=== PATIENT | female | born 1985 | race African-American/Black ===

== ENCOUNTER 2017-07-23 21:23 | Observation (INO) | payer BC, OTHER ==
[2017-07-23 21:32] VITALS: BMI 26.5
--- NOTE | 2017-07-23 21:34 | PDOC ---
History of Present Illness - General History Source: Patient Exam Limitations: No Limitations - History of Present Illness Initial Comments: PCP: Cole Shook 31 year old female with no pmhx presented to the ED today with one day h/o of mid epigastric pain associated with Nausea and vomiting . The symptoms started today morning after she had a breakfast 2 eggs and orange juices , she develop 9/10 mid epigastric pain , continuous non radiating , she vomited 8 times since then whatever she ate. bilious and non bloody. she denies nay fever, chills . recent cold or sick contact , denies recent travel, denies headache ,blurry vision , sore throat, chest pain , sob, cough, denies any urinary symptoms, dysuria , hematuria. she has been having frequent gases and abdominal floating that she was follow up with GI doctor fr that and she was scheduled for endoscopy. PMHX: None PSH : none Allergies: NKDA Social: social drinking, denies any tobacco or drug abuse FH: BP , DM. Physical exam : Vital Signs Temp Pulse Resp BP Pulse Ox 98.8 F 74 18 121/61 99 07/23/17 21:30 07/23/17 21:30 07/23/17 21:30 07/23/17 21:30 07/23/17 21:30 General: well nourished in NAD Head: NC/AT , Neck: supple no lymphademopathy ENT: MMM, JOSE FRANCISCO, EOMI, No exudate Lungs: CTA B/L Haert: RRR, no MRG Abdomen : soft, mid epigastric tenderness,Webster;s positive , hypoactive BS Neuro: no focal deficit, normal speeach and walk Skin: warm and dry Legs: No edema , + 2 DP DD: Acute cholecystitis biliary cholic choledocholithisis Gastritis gastroenteritis Work up CBC, CMP US abdomen Protonix 40 mg iv push once Zofran for nausea IV fluids NS 125 CC/hr BHCG UA 07/23/17 21:59 <Omer Coats - Last Filed: 07/23/17 22:33> <Zeinab Henriquez - Last Filed: 07/24/17 00:47> - General Chief Complaint: Nausea/Vomiting Stated Complaint: ABDOMINAL AND BACK PAIN, VOMITING Time Seen by Provider: 07/23/17 21:33 Past History - Past Medical History COPD: No - Suicide/Smoking/Psychosocial Hx Smoking Status: No Smoking History: Never smoked Number of Cigarettes Smoked Daily: 0 <PaulyDelanoi - Last Filed: 07/23/17 22:33> <Zeinab Henriquez - Last Filed: 07/24/17 00:47> - Past Medical History Allergies/Adverse Reactions: Allergies Allergy/AdvReac Type Severity Reaction Status Date / Time No Known Allergies Allergy Verified 07/23/17 21:29 Home Medications: Ambulatory Orders Naproxen [Naprosyn -] 500 mg PO BID PRN #14 tablet 02/20/13 Norgestrel-Ethinyl Estradiol [Lo-Ovral-28] 1 each PO DAILY 02/20/13 *Physical Exam - Vital Signs Last Vital Signs Temp Pulse Resp BP Pulse Ox 98.8 F 74 18 121/61 99 07/23/17 21:30 07/23/17 21:30 07/23/17 21:30 07/23/17 21:30 07/23/17 21:30 <PaulyOmer - Last Filed: 07/23/17 22:33> - Vital Signs Last Vital Signs Temp Pulse Resp BP Pulse Ox 98.8 F 74 18 121/61 99 07/23/17 21:30 07/23/17 21:30 07/23/17 21:30 07/23/17 21:30 07/23/17 21:30 <Zeinab Henriquez - Last Filed: 07/24/17 00:47> ED Treatment Course - LABORATORY CBC & Chemistry Diagram: 07/23/17 21:53 07/23/17 21:53 <PaulyOmer - Last Filed: 07/23/17 22:33> - LABORATORY CBC & Chemistry Diagram: 07/23/17 21:53 07/23/17 21:53 - ADDITIONAL ORDERS Additional order review: Laboratory Results 07/23/17 07/23/17 07/23/17 22:00 21:53 21:53 Sodium 132 L Potassium 4.4 Chloride 99 Carbon Dioxide 28 Anion Gap 5 L BUN 7 Creatinine 0.6 Creat Clearance w eGFR > 60 Random Glucose 97 Calcium 9.5 Total Bilirubin 0.2 AST 13 L ALT 27 Alkaline Phosphatase 44 L Total Protein 7.8 Albumin 4.3 Lipase 108 Serum , Qual Negative Urine Color Yellow Urine Appearance Turbid Urine pH 9.0 H Ur Specific [place] 1.016 Urine Protein Negative Urine Glucose (UA) Negative Urine Ketones Trace H Urine Blood Negative Urine Nitrite Negative Urine Bilirubin Negative Urine Urobilinogen Negative Ur Leukocyte Esterase Negative 07/23/17 21:53 RBC 4.59 MCV 84.9 MCHC 33.6 RDW 12.6 MPV 7.9 Neutrophils % 87.9 H Lymphocytes % 9.0 Monocytes % 2.6 L Eosinophils % 0.1 Basophils % 0.4 - Medications Given in the ED: ED Medications Discontinued Medications Generic Name Dose Route Start Last Admin Trade Name Abrahamq PRN Reason Stop Dose Admin Hydromorphone HCl 0.5 mg 07/23/17 21:55 07/23/17 22:29 Dilaudid Injection - IVPB 07/23/17 21:56 Not Given ONCE ONE Ondansetron HCl 4 mg 07/23/17 21:52 07/23/17 22:28 Zofran Injection IVPUSH 07/23/17 21:53 4 mg ONCE ONE Administration Pantoprazole Sodium 40 mg 07/23/17 21:59 07/23/17 22:29 Protonix Iv IVPUSH 07/23/17 22:00 40 mg ONCE ONE Administration <Zeinab Henriquez - Last Filed: 07/24/17 00:47> Medical Decision Making - Medical Decision Making 07/23/17 22:55 89-year-old female presents with epigastric pain that radiates to her back, nausea and vomiting. She has been having bilious emesis. She has a past medical history of epigastric pain and vomiting and has seen a gastroentologist and an endoscopy is planned However, today she said the pain was much worse and she vomited 8 times She denies any diarrhea <Zeinab Henriquez - Last Filed: 07/24/17 00:47> *DC/Admit/Observation/Transfer <Omer Coats - Last Filed: 07/23/17 22:33> <Zeinab Henriquez - Last Filed: 07/24/17 00:47> Diagnosis at time of Disposition: Cholelithiasis, Persistent vomiting - Referrals Referrals: Bouchra Galvan MD [Primary Care Provider] - - Patient Instructions - Post Discharge Activity
[2017-07-23] MEDS ORDERED: ONDANSETRON 4 MG/2 ML VIAL IVPUSH ONE (21:52)
[2017-07-23] MEDS ORDERED: HYDROmorphone HCL CARPU-JECT 1 MG/1 ML DISP.SYRIN IVPB ONE (21:55)
[2017-07-23] MEDS ORDERED: ONDANSETRON 4 MG/2 ML VIAL ONE (21:57)
[2017-07-23] MEDS ORDERED: PANTOPRAZOLE SODIUM 40 MG VIAL IVPUSH ONE (21:59)
[2017-07-23] MEDS ORDERED: SODIUM CHLORIDE 1,000 ML IV SCH (22:00)
[2017-07-23 22:03] LABS: URINE APPEARANCE TURBID; URINE BILIRUBIN NEGATIVE (<2.0 mg/dL); URINE BLOOD NEGATIVE (NEGATIVE); URINE COLOR YELLOW; URINE GLUCOSE (UA) NEGATIVE (NEGATIVE); URINE KETONE TRACE (NEGATIVE); URINE LEUK ESTERASE NEGATIVE (NEGATIVE); URINE NITRITE NEGATIVE (NEGATIVE); URINE PROTEIN NEGATIVE (NEGATIVE); URINE UROBILINOGEN NEGATIVE mg/dL (0.2-1.0)
[2017-07-23] MEDS ORDERED: PANTOPRAZOLE SODIUM 40 MG VIAL ONE (22:03)
[2017-07-23 22:05] LABS: BASO % 0.4 % (0-2.0); EOS % 0.1 % (0-4.5); HEMOGLOBIN 13.1 GM/dL (10.7-15.3); MCH 28.6 pg (25.7-33.7); MCHC 33.6 g/dl (32.0-36.0); MEAN CELL VOLUME 84.9 fl (80-96); MEAN PLT VOLUME 7.9 fl (7.5-11.1); MONO % 2.6 % (3.8-10.2); NEUT % 87.9 % (42.8-82.8); PLATELET COUNT 258 K/MM3 (134-434); RBC 4.59 M/mm3 (3.60-5.2); RDW 12.6 % (11.6-15.6); WHITE BLOOD COUNT 14.2 K/mm3 (4.0-10.0)
[2017-07-23 22:42] LABS: ALBUMIN 4.3 g/dl (3.4-5.0); ANION GAP 5 (8-16); BILIRUBIN,TOTAL 0.2 mg/dL (0.2-1.0); BLOOD UREA NITROGEN 7 mg/dL (7-18); CALCIUM 9.5 mg/dL (8.5-10.1); CHLORIDE 99 mmol/L (98-107); CO2 28 mmol/L (21-32); CREATININE 0.6 mg/dL (0.55-1.02); GLUCOSE,RANDOM 97 mg/dL (74-106); LIPASE 108 U/L (73-393); POTASSIUM 4.4 mmol/L (3.5-5.1); SGOT/AST 13 U/L (15-37); SGPT/ALT 27 U/L (12-78); SODIUM 132 mmol/L (136-145); TOT PROT 7.8 g/dl (6.4-8.2)
[2017-07-23 22:43] LABS: ALK PHOS 44 U/L (45-117)
--- NOTE | 2017-07-23 22:59 | PDOC ---
Attending Attestation - Resident Resident Name: Omer Coats - ED Attending Attestation I have performed the following: I have examined & evaluated the patient, The case was reviewed & discussed with the resident, I agree w/resident's findings & plan, Exceptions are as noted - HPI HPI: 07/23/17 22:59 31 yo female w epigastric and vomiting today, pain radiating to her back - Physicial Exam PE: 07/23/17 22:59 31 yo female with epigastric pain and tenderness head ncat neck supple lungs cta b/l cvs [id number] abd +epigastric pain ext no e/c/c neuro no focal neuro deficits - Medical Decision Making 07/23/17 23:02 diff diag : cholecystitis,gastritis 07/23/17 23:53 US +cholecystitis w persisitent bilious emesis and pain plan med/surg ADMIT
[2017-07-23] MEDS ORDERED: morphine CARPU-JECT 2 MG/1 ML DISP.SYRIN IVPUSH ONE (23:03)
[2017-07-23] MEDS ORDERED: morphine SULFATE 4 MG/ML VIAL ONE (23:10)
[2017-07-23] MEDS ORDERED: PIPERACILLIN/TAZOB 3.375 GM 50 ML IVPB ONE (23:41)
[2017-07-23] MEDS ORDERED: PIPERACILLIN/TAZOB 3.375 GM 3.375 GM/50 ML BAG IVPB ONE (23:47)
--- NOTE | 2017-07-23 23:49 | HP ---
CHIEF COMPLAINT: Abdominal Pain, Vomiting PCP: Dr. Bouchra Galvan HISTORY OF PRESENT ILLNESS: This is a 31 y/o woman with no past medical history. Who presents to the ED with epigastric cramping with bilious non-bloody vomit starting today. Patient reports after eating eggs and OJ earlier in the day, she began having cramping, bloating, epigastric pain with bilious vomiting x 8 episode. Patient reports being under the care of a GI for flatulence and abdominal bloating scheduled for an Endoscopy. Patient denies fever, cough, FLORES, dizziness, CP, diarrhea, constipation, dysuria. Last BM today- brown soft ER course was notable for: (1) Abdominal US- Cholelithiasis, GB distended, fatty liver, normal CBD 2.3 (2) WBC 14.2 (3) Recent Travel: None PAST MEDICAL HISTORY: None PAST SURGICAL HISTORY: None Social History: Smoking: Never Alcohol: Social Drugs: Denies Family History: Father: HLD Mother: well, alive HTN: Grandparents DM: Grandparents Allergies No Known Allergies Allergy (Verified 07/23/17 21:29) HOME MEDICATIONS: Home Medications Medication Instructions Recorded Naproxen [Naprosyn -] 500 mg PO BID PRN #14 tablet 02/20/13 Norgestrel-Ethinyl Estradiol 1 each PO DAILY 02/20/13 [Lo-Ovral-28] REVIEW OF SYSTEMS CONSTITUTIONAL: chills Absent: fever, diaphoresis, generalized weakness, malaise, loss of appetite, weight change HEENT: Absent: rhinorrhea, nasal congestion, throat pain, throat swelling, difficulty swallowing, mouth swelling, ear pain, eye pain, visual changes CARDIOVASCULAR: Absent: chest pain, syncope, palpitations, irregular heart rate, lightheadedness , peripheral edema RESPIRATORY: Absent: cough, shortness of breath, dyspnea with exertion, orthopnea, wheezing, stridor, hemoptysis GASTROINTESTINAL: abdominal pain, abdominal distension, nausea, vomiting Absent: diarrhea, constipation, melena, hematochezia GENITOURINARY: Absent: dysuria, frequency, urgency, hesitancy, hematuria, flank pain, genital pain MUSCULOSKELETAL: Absent: myalgia, arthralgia, joint swelling, back pain, neck pain SKIN: Absent: rash, itching, pallor HEMATOLOGIC/IMMUNOLOGIC: Absent: easy bleeding, easy bruising, lymphadenopathy, frequent infections ENDOCRINE: Absent: unexplained weight gain, unexplained weight loss, heat intolerance, cold intolerance NEUROLOGIC: Absent: headache, focal weakness or paresthesias, dizziness, unsteady gait, seizure, mental status changes, bladder or bowel incontinence PSYCHIATRIC: Absent: anxiety, depression, suicidal or homicidal ideation, hallucinations. PHYSICAL EXAMINATION Vital Signs - 24 hr 07/23/17 21:30 Temperature 98.8 F Pulse Rate 74 Respiratory 18 Rate Blood Pressure 121/61 O2 Sat by Pulse 99 Oximetry (%) GENERAL: Awake, alert, and fully oriented, in no acute distress. HEAD: Normal with no signs of trauma. EYES: Pupils equal, round and reactive to light, extraocular movements intact, sclera anicteric, conjunctiva clear. No lid lag. EARS, NOSE, THROAT: Ears normal, nares patent, oropharynx clear without exudates. Moist mucous membranes. NECK: Normal range of motion, supple without lymphadenopathy, JVD, or masses. LUNGS: Breath sounds equal, clear to auscultation bilaterally. No wheezes, and no crackles. No accessory muscle use. HEART: Regular rate and rhythm, normal S1 and S2 without murmur, rub or gallop. ABDOMEN:+Epigastric tenderness, hypoactive bowel sounds. Soft, not distended, no guarding, no rebound, no masses. No hepatomegaly or splenomegaly. neg Webster's sign MUSCULOSKELETAL: Normal range of motion at all joints. No bony deformities or tenderness. No CVA tenderness. UPPER EXTREMITIES: 2+ pulses, warm, well-perfused. No cyanosis. No clubbing. No peripheral edema. LOWER EXTREMITIES: 2+ pulses, warm, well-perfused. No calf tenderness. No peripheral edema. NEUROLOGICAL: Cranial nerves II-XII intact. Normal speech. Normal gait. PSYCHIATRIC: Cooperative. Good eye contact. Appropriate mood and affect. SKIN: Warm, dry, normal turgor, no rashes or lesions noted, normal capillary refill. Laboratory Results - last 24 hr 07/23/17 07/23/17 07/23/17 21:53 21:53 21:53 WBC 14.2 H RBC 4.59 Hgb 13.1 Hct 39.0 MCV 84.9 MCH 28.6 MCHC 33.6 RDW 12.6 Plt Count 258 MPV 7.9 Neutrophils % 87.9 H Lymphocytes % 9.0 Monocytes % 2.6 L Eosinophils % 0.1 Basophils % 0.4 Sodium 132 L Potassium 4.4 Chloride 99 Carbon Dioxide 28 Anion Gap 5 L BUN 7 Creatinine 0.6 Creat Clearance w eGFR > 60 Random Glucose 97 Calcium 9.5 Total Bilirubin 0.2 AST 13 L ALT 27 Alkaline Phosphatase 44 L Total Protein 7.8 Albumin 4.3 Lipase 108 Serum , Qual Urine Color Yellow Urine Appearance Turbid Urine pH 9.0 H Ur Specific [place] 1.016 Urine Protein Negative Urine Glucose (UA) Negative Urine Ketones Trace H Urine Blood Negative Urine Nitrite Negative Urine Bilirubin Negative Urine Urobilinogen Negative Ur Leukocyte Esterase Negative 07/23/17 22:00 WBC RBC Hgb Hct MCV MCH MCHC RDW Plt Count MPV Neutrophils % Lymphocytes % Monocytes % Eosinophils % Basophils % Sodium Potassium Chloride Carbon Dioxide Anion Gap BUN Creatinine Creat Clearance w eGFR Random Glucose Calcium Total Bilirubin AST ALT Alkaline Phosphatase Total Protein Albumin Lipase Serum , Qual Negative Urine Color Urine Appearance Urine pH Ur Specific [place] Urine Protein Urine Glucose (UA) Urine Ketones Urine Blood Urine Nitrite Urine Bilirubin Urine Urobilinogen Ur Leukocyte Esterase ASSESSMENT/PLAN: This is a 31 y/o woman with no PMHx. Placed on Observation for Abdominal Pain secondary to Cholelithiasis, Persistent Vomiting Plan: 1. GI: Abdominal Pain Cholelithiasis Persistent Vomiting - r/o Cholecystitis vs Gastritis - +Leukocytosis - Abd US- Cholelithasis, GB distention, no GBW thickening, neg Webster's sign, Fatty Liver, normal CBD 5.3mm, Right renal cyst - Appreciate GI consult - Appreciate Surgical consult - Continue IVF - NPO - Zofran prn - Repeat CBC, BMP in am - Monitor vitals - Consider ERCP 2. Leukocytosis - Likely secondary to infection vs inflammatory process vs malignancy - Blood Cultures-pending - +Neutrophila - Empirically treated with Zosyn for Cholecytstitis, will continue - Appreciate ID consult - Repeat CBCD in am - Monitor vitals 3. FEN - D51/2NS@100ml/hr - Replete lytes prn - NPO 4. DVT ppx - OOB - SCDs Code Status: Full Code Dispo: Observation Problem List - Problem (1) Cholelithiasis Code(s): K80.20 - CALCULUS OF GALLBLADDER W/O CHOLECYSTITIS W/O OBSTRUCTION Qualifiers: Cholelithiasis location: gallbladder Cholecystitis presence: with cholecystitis Cholecystitis acuity: acute Biliary obstruction: without biliary obstruction Qualified Code(s): K80.00 - Calculus of gallbladder with acute cholecystitis without obstruction (2) Persistent vomiting Code(s): R11.10 - VOMITING, UNSPECIFIED (3) Leukocytosis Code(s): D72.829 - ELEVATED WHITE BLOOD CELL COUNT, UNSPECIFIED (4) DVT prophylaxis Code(s): BXB9225 - Visit type - Emergency Visit Emergency Visit: Yes ED Registration Date: 07/23/17 Care time: The patient presented to the Emergency Department on the above date and was hospitalized for further evaluation of their emergent condition. - New Patient This patient is new to me today: Yes Date on this admission: 07/23/17 - Critical Care Critical Care patient: No Hospitalist Screening - Colonoscopy Questionnaire Colonoscopy Questionnaire: Colonoscopy Questionnaire - Patient: 50 - 75 years old and never had a screening colonoscopy: No History of colon or rectal polyps, or CA: No History of IBD, Crohn's disease or UC: No History of abdominal radiation therapy as a child: No - Relative: 1 with colon or rectal CA, or polyps at age 60 or younger: No Colon or rectal CA diagnosed at age 45 or younger: No Multiple relatives with colon or rectal CA: No - Outcome: Screening Result: Negative Screen
--- NOTE | 2017-07-23 23:55 | PDOC ---
*Physical Exam - Vital Signs Last Vital Signs Temp Pulse Resp BP Pulse Ox 98.8 F 74 18 121/61 99 07/23/17 21:30 07/23/17 21:30 07/23/17 21:30 07/23/17 21:30 07/23/17 21:30 ED Treatment Course - LABORATORY CBC & Chemistry Diagram: 07/23/17 21:53 07/23/17 21:53 - ADDITIONAL ORDERS Additional order review: Laboratory Results 07/23/17 07/23/17 07/23/17 22:00 21:53 21:53 Sodium 132 L Potassium 4.4 Chloride 99 Carbon Dioxide 28 Anion Gap 5 L BUN 7 Creatinine 0.6 Creat Clearance w eGFR > 60 Random Glucose 97 Calcium 9.5 Total Bilirubin 0.2 AST 13 L ALT 27 Alkaline Phosphatase 44 L Total Protein 7.8 Albumin 4.3 Lipase 108 Serum , Qual Negative Urine Color Yellow Urine Appearance Turbid Urine pH 9.0 H Ur Specific [place] 1.016 Urine Protein Negative Urine Glucose (UA) Negative Urine Ketones Trace H Urine Blood Negative Urine Nitrite Negative Urine Bilirubin Negative Urine Urobilinogen Negative Ur Leukocyte Esterase Negative 07/23/17 21:53 RBC 4.59 MCV 84.9 MCHC 33.6 RDW 12.6 MPV 7.9 Neutrophils % 87.9 H Lymphocytes % 9.0 Monocytes % 2.6 L Eosinophils % 0.1 Basophils % 0.4 - Medications Given in the ED: ED Medications Discontinued Medications Generic Name Dose Route Start Last Admin Trade Name Freq PRN Reason Stop Dose Admin Hydromorphone HCl 0.5 mg 07/23/17 21:55 07/23/17 22:29 Dilaudid Injection - IVPB 07/23/17 21:56 Not Given ONCE ONE Morphine Sulfate 2 mg 07/23/17 23:03 07/23/17 23:11 Morphine Injection - IVPUSH 07/23/17 23:04 2 mg ONCE ONE Administration Ondansetron HCl 4 mg 07/23/17 21:52 07/23/17 22:28 Zofran Injection IVPUSH 07/23/17 21:53 4 mg ONCE ONE Administration Pantoprazole Sodium 40 mg 07/23/17 21:59 07/23/17 22:29 Protonix Iv IVPUSH 07/23/17 22:00 40 mg ONCE ONE Administration *DC/Admit/Observation/Transfer Diagnosis at time of Disposition: Persistent vomiting Cholelithiasis Qualifiers: Cholelithiasis location: gallbladder Cholecystitis presence: with cholecystitis Cholecystitis acuity: acute Biliary obstruction: without biliary obstruction Qualified Code(s): K80.00 - Calculus of gallbladder with acute cholecystitis without obstruction - Discharge Dispostion Admit: Yes - Referrals Referrals: Bouchra Galvan MD [Primary Care Provider] - - Patient Instructions - Post Discharge Activity
[2017-07-24] MEDS ORDERED: ONDANSETRON 4 MG/2 ML VIAL IVPUSH PRN (00:17)
[2017-07-24] MEDS: DEXTROSE 5%-0.45% SALINE 1,000 ML IV SCH ×2 (00:40→20:52)
[2017-07-24 07:14] LABS: BASO % 0.6 % (0-2.0); EOS % 1.6 % (0-4.5); HEMATOCRIT 36.8 % (32.4-45.2); HEMOGLOBIN 12.3 GM/dL (10.7-15.3); LYMPH % 19.4 % (8-40); MCH 28.9 pg (25.7-33.7); MCHC 33.6 g/dl (32.0-36.0); MEAN PLT VOLUME 7.7 fl (7.5-11.1); MONO % 6.7 % (3.8-10.2); NEUT % 71.7 % (42.8-82.8); PLATELET COUNT 235 K/MM3 (134-434); RBC 4.27 M/mm3 (3.60-5.2); RDW 13.2 % (11.6-15.6); WHITE BLOOD COUNT 10.2 K/mm3 (4.0-10.0)
[2017-07-24 07:26] LABS: ANION GAP 7 (8-16); BLOOD UREA NITROGEN 5 mg/dL (7-18); CALCIUM 8.6 mg/dL (8.5-10.1); CHLORIDE 105 mmol/L (98-107); CO2 27 mmol/L (21-32); CREATININE 0.7 mg/dL (0.55-1.02); GLUCOSE,RANDOM 116 mg/dL (74-106); POTASSIUM 3.6 mmol/L (3.5-5.1); SODIUM 139 mmol/L (136-145)
[2017-07-24] MEDS ORDERED: ACETAMINOPHEN 500 MG TABLET (FP) PO PRN (09:11)
--- NOTE | 2017-07-24 09:11 | PN ---
Progress Note (short form) - Note Progress Note: This 31 year old female admitted with abd discomfort and distention with vomiting. No fever but WBC elevated on admission 14K. Sees GI at [facility] and knows she has gall stones. She was to have endoscopy scheduled. No other medical issues Selected Entries 07/24/17 07:08 Temperature 98.2 F Pulse Rate [ 77 Right Apical] Respiratory 18 Rate Blood Pressure 140/65 [Left Arm] O2 Sat by Pulse 99 Oximetry (%) She looks well NAD Abd Benign Laboratory Tests 07/23/17 07/24/17 07/24/17 21:53 06:35 06:35 WBC 10.2 H Hgb 12.3 Plt Count 235 BUN 5 L Creatinine 0.7 Ur Leukocyte Esterase Negative Assessment Cholelithiasis no evidence for cholecystitis currently Appears very comfortable at present Plan Surgical consult regarding cholecystectomy with further GI workup as planned NO antibiotics HIV screening Tylenol for headaches Ingrid PURDY Problem List - Problems (1) Cholelithiasis Code(s): K80.20 - CALCULUS OF GALLBLADDER W/O CHOLECYSTITIS W/O OBSTRUCTION Qualifiers: Cholelithiasis location: gallbladder Cholecystitis presence: with cholecystitis Cholecystitis acuity: acute Biliary obstruction: without biliary obstruction Qualified Code(s): K80.00 - Calculus of gallbladder with acute cholecystitis without obstruction
--- NOTE | 2017-07-24 10:16 | PN ---
Progress Note, Physician Chief Complaint: cholecystitis History of Present Illness: NAD, family at bedside denies N/V at this time to be seen by Surgery for choleycystectomy - Current Medication List Current Medications: Active Medications Acetaminophen (Tylenol -) 500 mg PO Q6H PRN PRN Reason: HEADACHE Sodium Chloride (Normal Saline -) 1,000 mls @ 125 mls/hr IV [facility] Last Admin: 07/23/17 22:29 Dose: 125 mls/hr Dextrose/Sodium Chloride (D5-1/2ns -) 1,000 mls @ 100 mls/hr IV ASDIR KEL Last Admin: 07/24/17 00:40 Dose: 100 mls/hr Ondansetron HCl (Zofran Injection) 4 mg IVPUSH Q6H PRN PRN Reason: NAUSEA AND/OR VOMITING - Objective Vital Signs: Vital Signs Temperature 97.8 F 07/24/17 07:40 Pulse Rate 69 07/24/17 07:40 Respiratory Rate 18 07/24/17 07:40 Blood Pressure 138/67 07/24/17 07:40 O2 Sat by Pulse Oximetry (%) 100 07/24/17 07:40 Constitutional: Yes: Well Nourished, No Distress, Calm Cardiovascular: Yes: Regular Rate and Rhythm Respiratory: Yes: Regular Gastrointestinal: Yes: Hypoactive Bowel Sounds, Tenderness, Epigastrium Musculoskeletal: Yes: WNL Extremities: Yes: WNL Edema: No Peripheral Pulses WNL: Yes Neurological: Yes: Alert, Oriented Psychiatric: Yes: Alert, Oriented Labs: CBC, BMP 07/24/17 06:35 07/24/17 06:35 Problem List - Problems (1) Cholecystitis Assessment/Plan: -GI and Surgery consult -ID on board -received abx -WBC improved -NPO -IVF Code(s): K81.9 - CHOLECYSTITIS, UNSPECIFIED (2) Persistent vomiting Assessment/Plan: -NPO -Zofran -IVF Code(s): R11.10 - VOMITING, UNSPECIFIED Assessment/Plan see problem list
--- NOTE | 2017-07-24 10:45 | CONS ---
DATE OF CONSULTATION: HISTORY: This is a 31-year-old female who presents to the emergency room with chief complaint of multiple episodes of bilious vomiting associated with epigastric discomfort and abdominal distention. Her symptoms started yesterday morning, and her pain and discomfort became more severe. History is significant in that she has recently seen a adobe flex developer for similar episodes of discomfort and abdominal pain with distention. She sees a adobe flex developer at the [facility] and had been told that she had gallstones. An upper endoscopy was scheduled for further evaluation of her complaints. She had no fever here, but her white count was slightly elevated at 14,000, and apparently for this reason, she was given a dose of Zosyn. I am asked to see her for further evaluation. Currently, she is alert and in no acute distress currently having no pain or discomfort. Her white count has since normalized at 10,000. PAST MEDICAL HISTORY: Negative. CURRENT MEDICATIONS: None. ALLERGIES: None known. SOCIAL HISTORY: Admits to occasional alcohol use but no substance abuse. She does not smoke. HIV tested several years ago negative. She works in [employer] at [employer]. FAMILY HISTORY: Positive for diabetes and hypertension. REVIEW OF SYSTEMS: Respiratory: No cough or shortness of breath. Cardiac: No chest pain, palpitations, murmur. Gastrointestinal: Positive bilious vomiting with abdominal cramping and distention. No blood per rectum, hematemesis, diarrhea. Genitourinary: No dysuria, hematuria. PHYSICAL EXAMINATION: General: She is a pleasant woman in no distress. Vital Signs: Temperature 98.2, pulse 77, blood pressure 144/65, respirations 18. Neck: Supple. No adenopathy. Lungs: Clear to percussion and auscultation. Heart: S1, S2. Regular rhythm without audible murmur. Abdomen: Soft. Positive bowel sounds. No localized tenderness. No guarding or rebound. No hepatosplenomegaly. Extremities: No clubbing, cyanosis, or edema. LABORATORY DATA: The white count is 10.2, hemoglobin 12.3, platelets 234. Chemistries: BUN 5, creatinine 0.7. Liver enzymes completely normal. Urinalysis negative for leukocyte esterase. Sonogram of the gallbladder shows somewhat distended gallbladder but no gallbladder wall thickening or pericholecystic fluid. Fatty liver and gallstones noted. ASSESSMENT: Cholelithiasis with episode of biliary colic now appears to have resolved. Afebrile with normal white count and benign abdomen. PLAN: At this point, I would observe off of antibiotics. Obtain a surgical consultation for possible cholecystectomy. Lastly, HIV screening. ESTHER GARCIA M.D. [id number]/[id number]
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
[2017-07-25] MEDS: DEXTROSE 5%-0.45% SALINE 1,000 ML IV SCH (06:23)
[2017-07-25 08:16] LABS: CHLORIDE 106 mmol/L (98-107); POTASSIUM 4.3 mmol/L (3.5-5.1); SODIUM 140 mmol/L (136-145)
[2017-07-25 08:31] LABS: ALBUMIN 3.3 g/dl (3.4-5.0); ALK PHOS 37 U/L (45-117); ANION GAP 5 (8-16); BILIRUBIN,TOTAL 0.5 mg/dL (0.2-1.0); BLOOD UREA NITROGEN 6 mg/dL (7-18); CALCIUM 8.4 mg/dL (8.5-10.1); CO2 29 mmol/L (21-32); CREATININE 0.8 mg/dL (0.55-1.02); GLUCOSE,RANDOM 93 mg/dL (74-106); SGOT/AST 11 U/L (15-37); SGPT/ALT 18 U/L (12-78); TOT PROT 6.3 g/dl (6.4-8.2)
--- NOTE | 2017-07-25 09:01 | CON.GI ---
Consult Consult Specialty:: GI - History of Present Illness History of Present Illness: The patient was asked to be seen because of abdominal pain. She was doing well until 1 day prior to admission when she developed 8/10 epigastric pain radiating to the right upper quadrant, associated with nausea and no vomiting. She has history of NSAID use. She has no fatty intolerance, denies fever and recent weight loss. She is bravo free this evening. - Past Medical History Hepatobiliary: Yes: Cholelithiasis ...LMP: 06/12/17 ...: No ENT: Yes: Allergic Rhinitis (dust/pollen) - Past Surgical History Past Surgical History: Yes: None - Alcohol/Substance Use Hx Alcohol Use: Yes (social) History of Substance Use: reports: None - Smoking History Smoking history: Never smoked Aproximately how many cigarettes per day: 0 - Social History ADL: Independent Home Medications - Allergies Allergies/Adverse Reactions: Allergies Allergy/AdvReac Type Severity Reaction Status Date / Time No Known Allergies Allergy Verified 07/23/17 21:29 - Home Medications Home Medications: Ambulatory Orders NK [No Known Home Medication] 07/24/17 Physical Exam-GI Vital Signs: Vital Signs Temperature 97.7 F 07/25/17 06:00 Pulse Rate 59 L 07/25/17 06:00 Respiratory Rate 20 07/25/17 06:00 Blood Pressure 104/55 07/25/17 06:00 O2 Sat by Pulse Oximetry (%) 100 07/25/17 01:00 Constitutional: Yes: Well Nourished Eyes: Yes: Conjunctiva Clear, Occular Prosthesis Neck: Yes: Supple, Tenderness Respiratory: Yes: CTA Bilaterally ...Palpate: Yes: Soft. No: Firm/Rigid, Guarding, Hepatomegaly, Mass, Pulsatile Mass, Splenomegaly, Tenderness Labs: CBC, BMP 07/25/17 06:20 CBCD WBC 10.2 K/mm3 (4.0-10.0) H 07/24/17 06:35 RBC 4.27 M/mm3 (3.60-5.2) 07/24/17 06:35 Hgb 12.3 GM/dL (10.7-15.3) 07/24/17 06:35 Hct 36.8 % (32.4-45.2) 07/24/17 06:35 MCV 86.0 fl (80-96) 07/24/17 06:35 MCHC 33.6 g/dl (32.0-36.0) 07/24/17 06:35 RDW 13.2 % (11.6-15.6) 07/24/17 06:35 Plt Count 235 K/MM3 (134-434) 07/24/17 06:35 MPV 7.7 fl (7.5-11.1) 07/24/17 06:35 CMP Sodium 140 mmol/L (136-145) 07/25/17 06:20 Potassium 4.3 mmol/L (3.5-5.1) 07/25/17 06:20 Chloride 106 mmol/L (98-107) 07/25/17 06:20 Carbon Dioxide 29 mmol/L (21-32) 07/25/17 06:20 Anion Gap 5 (8-16) L 07/25/17 06:20 BUN 6 mg/dL (7-18) L 07/25/17 06:20 Creatinine 0.8 mg/dL (0.55-1.02) 07/25/17 06:20 Creat Clearance w eGFR > 60 (>60) 07/25/17 06:20 Calcium 8.4 mg/dL (8.5-10.1) L 07/25/17 06:20 Total Bilirubin 0.5 mg/dL (0.2-1.0) D 07/25/17 06:20 AST 11 U/L (15-37) L 07/25/17 06:20 ALT 18 U/L (12-78) 07/25/17 06:20 Alkaline Phosphatase 37 U/L (45-117) L 07/25/17 06:20 Total Protein 6.3 g/dl (6.4-8.2) L 07/25/17 06:20 Albumin 3.3 g/dl (3.4-5.0) L 07/25/17 06:20 Home Medications Medication Instructions Recorded NK [No Known Home Medication] 07/24/17 Imaging - Results Ultrasound: Report Reviewed Problem List - Problems (1) Epigastric pain Assessment/Plan: r/o secondary to dyspepsia and biliary colic,IBS R> will advance diet gi w/u as an outpatient, patient was made aware to follow up maintain on Protonix 40mg and reglan 5mg 30 min ac as outpatient low fiber lactose free Flagyl 250mg tid for 2 weeks Code(s): R10.13 - EPIGASTRIC PAIN
[2017-07-25 09:13] LABS: BASO % 0.7 % (0-2.0); EOS % 4.9 % (0-4.5); HEMATOCRIT 36.6 % (32.4-45.2); HEMOGLOBIN 12.1 GM/dL (10.7-15.3); LYMPH % 31.1 % (8-40); MCH 28.8 pg (25.7-33.7); MCHC 33.1 g/dl (32.0-36.0); MEAN PLT VOLUME 7.9 fl (7.5-11.1); MONO % 8.4 % (3.8-10.2); NEUT % 54.9 % (42.8-82.8); PLATELET COUNT 239 K/MM3 (134-434); RDW 13.3 % (11.6-15.6); WHITE BLOOD COUNT 5.9 K/mm3 (4.0-10.0)
[2017-07-25] MEDS ORDERED: PANTOPRAZOLE 40 MG TABLET (FP) PO SCH (10:00)
[2017-07-25 10:23] VITALS: BP 124/69; PULSE 79; TEMP 98
[2017-07-25] MEDS ORDERED: METOCLOPRAMIDE HCL 10 MG TABLET (FP) PO SCH (11:00)
--- NOTE | 2017-07-25 13:04 | DS ---
Physical Examination Vital Signs: Vital Signs Temperature 98 F 07/25/17 10:18 Pulse Rate 79 07/25/17 10:18 Respiratory Rate 17 07/25/17 10:18 Blood Pressure 124/69 07/25/17 10:18 O2 Sat by Pulse Oximetry (%) 100 07/25/17 09:15 no more abdominal pain or nausea afebrile Constitutional: Yes: Calm Neck: Yes: Trachea Midline Cardiovascular: Yes: Regular Rate and Rhythm, S1, S2 Respiratory: Yes: CTA Bilaterally Gastrointestinal: Yes: Normal Bowel Sounds, Soft Edema: No Neurological: Yes: Alert, Oriented Labs: CBC, BMP 07/25/17 06:20 07/25/17 06:20 Discharge Summary Reason For Visit: CHOLELITHIASIS, PERSISTENT VOMITING Current Active Problems Calculus of gallbladder without cholecystitis without obstruction (Acute) Cholecystitis (Acute) Cholelithiasis (Acute) DVT prophylaxis (Acute) Dehydration (Acute) Epigastric pain (Acute) Leukocytosis (Acute) Nausea & vomiting (Acute) Persistent vomiting (Acute) Hospital Course: CHIEF COMPLAINT: Abdominal Pain, Vomiting PCP: Dr. Bouchra Galvan HISTORY OF PRESENT ILLNESS: This is a 31 y/o woman with no past medical history. Who presents to the ED with epigastric cramping with bilious non-bloody vomit starting today. Patient reports after eating eggs and OJ earlier in the day, she began having cramping, bloating, epigastric pain with bilious vomiting x 8 episode. Patient reports being under the care of a GI for flatulence and abdominal bloating scheduled for an Endoscopy. Patient denies fever, cough, FLORES, dizziness, CP, diarrhea, constipation, dysuria. Last BM today- brown soft ER course was notable for: (1) Abdominal US- Cholelithiasis, GB distended, fatty liver, normal CBD 2.3 (2) WBC 14.2 in hospital got one dose of iv antibiotic then stopped no fever WBC count normalized seen by GI and surgery to get GI workup as outpatient to take protonix and reglan flagyl for 2 weeks for possible IBS - Instructions Diet, Activity, Other Instructions: maintain on Protonix 40mg and reglan 5mg 30 min ac as outpatient low fiber lactose free Flagyl 250mg tid for 2 weeks Referrals: Bouchra Galvan MD [Primary Care Provider] - - Home Medications Comprehensive Discharge Medication List: Ambulatory Orders NK [No Known Home Medication] 07/24/17
[2017-07-25] MEDS ORDERED: metroNIDAZOLE 250 MG TABLET PO SCH (14:00)
== END 2017-07-25 15:16 | disposition home or self-care (01) ==
LOC: JER 21:23 → JERBED 23:55 → UNDOADMOB 07-24 → JERBED 07-24 → J5S 07-24 15:23
PROVIDERS: ADMIT Internal Medicine; ATTEND Family Medicine
PROC: 3E03329 Introduction of Other Anti-infective into Peripheral Vein, Percutaneous Approach (ICD-10-PCS; principal; 2017-07-23)
PROC: 3E033NZ Introduction of Analgesics, Hypnotics, Sedatives into Peripheral Vein, Percutaneous Approach (ICD-10-PCS; 2017-07-23)
PROC: 3E033GC Introduction of Other Therapeutic Substance into Peripheral Vein, Percutaneous Approach (ICD-10-PCS; 2017-07-23)
PROC: 3E0337Z Introduction of Electrolytic and Water Balance Substance into Peripheral Vein, Percutaneous Approach (ICD-10-PCS; 2017-07-23)
DX: K80.20 Calculus of gallbladder without cholecystitis without obstruction (principal); R11.10 Vomiting, unspecified; D72.829 Elevated white blood cell count, unspecified; E86.0 Dehydration; R10.13 Epigastric pain
CPT/HCPCS: 36415; 76705-TC; 80048; 80053; 81003; 83690; 84703; 85025; 87389; 99284-25; G0378; J7030

== ENCOUNTER 2017-07-29 21:39 | Inpatient (IN) | payer BC ==
[2017-07-29 22:00] VITALS: BMI 26.9
[2017-07-30] MEDS ORDERED: ONDANSETRON 4 MG/2 ML VIAL IVPB ONE (00:50)
[2017-07-30] MEDS ORDERED: morphine CARPU-JECT 4 MG/1 ML DISP.SYRIN IVPUSH ONE (00:50)
[2017-07-30] MEDS ORDERED: SODIUM CHLORIDE 1,000 ML IV STA (00:50)
--- NOTE | 2017-07-30 00:51 | PDOC ---
History of Present Illness - General Chief Complaint: Pain Stated Complaint: PAIN, VOMITING Time Seen by Provider: 07/30/17 00:44 History Source: Patient Exam Limitations: No Limitations - History of Present Illness Initial Comments: 07/30/17 00:59 Patient is a 31-year-old female past medical history of gallstones. He presents emergency department today complaining of right upper quadrant pain radiating to the back. Patient states she was seen approximately 6 days ago for similar symptoms. She was admitted to the hospital for gallstones. She also had a GI workup with also concern for PUD. Patient was discharged home on Flagyl and members all. Patient reports no relief with the medication. Patient is unable to eat due to her pain. Currently admits to nausea, vomiting, right upper quadrant pain radiating to the back. Denies fevers, chills, chest pain, shortness of breath, difficulty breathing, diarrhea, frequency, urgency and hematuria. Past History - Travel Traveled outside of the country in the last 30 days: No Close contact w/someone who was outside of country & ill: No - Past Medical History Allergies/Adverse Reactions: Allergies Allergy/AdvReac Type Severity Reaction Status Date / Time No Known Allergies Allergy Verified 07/29/17 21:52 Home Medications: Ambulatory Orders Metoclopramide HCl [Reglan -] 5 mg PO TIDAC #60 tablet MDD 3 07/25/17 Pantoprazole Sodium [Protonix -] 40 mg PO DAILY #30 tablet.ec MDD 1 07/25/17 metroNIDAZOLE [Flagyl -] 250 mg PO TID #60 tablet MDD 3 07/25/17 COPD: No GI Disorders: Yes (gallstones) - Immunization History Immunization Up to Date: Yes - Suicide/Smoking/Psychosocial Hx Smoking Status: No Smoking History: Never smoked Have you smoked in the past 12 months: No Number of Cigarettes Smoked Daily: 0 Information on smoking cessation initiated: No Hx Alcohol Use: No Drug/Substance Use Hx: No Substance Use Type: None Review of Systems - Review of Systems Able to Perform ROS?: Yes Comments:: 07/30/17 00:54 CONSTITUTIONAL: Absent: fever, chills, diaphoresis, generalized weakness, malaise, loss of appetite HEENT: Absent: rhinorrhea, nasal congestion, throat pain, throat swelling, difficulty swallowing, mouth swelling, ear pain, eye pain, visual Changes CARDIOVASCULAR: Absent: chest pain, loss of consciousness, palpitations, irregular heart rate, peripheral edema RESPIRATORY: Absent: cough, shortness of breath, dyspnea with exertion, orthopnea, wheezing, stridor, hemoptysis GASTROINTESTINAL: Present: abdominal pain, nausea, vomiting Absent: abdominal distension, diarrhea , constipation, melena, hematochezia GENITOURINARY: Absent: dysuria, frequency, urgency, hesitancy, hematuria, flank pain, genital pain MUSCULOSKELETAL: Absent: myalgia, arthralgia, joint swelling SKIN: Absent: rash, itching, pallor HEMATOLOGIC/IMMUNOLOGIC: Absent: easy bleeding, easy bruising, lymphadenopathy, frequent infections ENDOCRINE: Absent: unexplained weight gain, unexplained weight loss, heat intolerance, cold intolerance NEUROLOGIC: Absent: headache, focal weakness or paresthesias, dizziness, unsteady gait, seizure, mental status changes, bladder or bowel incontinence PSYCHIATRIC: Absent: anxiety, depression, suicidal or homicidal ideation, hallucinations. Is the patient limited [place] proficient: No *Physical Exam - Vital Signs Last Vital Signs Temp Pulse Resp BP Pulse Ox 98.6 F 77 17 139/97 100 07/29/17 21:49 07/29/17 21:49 07/29/17 21:49 07/29/17 21:49 07/29/17 21:49 - Physical Exam Comments: 07/30/17 00:54 GENERAL: Well developed, well nourished. Awake and alert. Moderate distress, actively vomiting. HEENT: Normocephalic, atraumatic. PERRLA, EOMI. No conjunctival pallor. Sclera are non- icteric. Moist mucous membranes. Oropharynx is clear. NECK: Supple. Full ROM. No JVD. Carotid pulses 2+ and symmetric, without bruits. No thyromegaly. No lymphadenopathy. CARDIOVASCULAR: Regular rate and rhythm. No murmurs, rubs, or gallops. Distal pulses are 2+ and symmetric. PULMONARY: No evidence of respiratory distress. Lungs clear to auscultation bilaterally. No wheezing, rales or rhonchi. ABDOMINAL: Severely tender in the RUQ, (+) murphys sign with guarding. Actively vomiting. Soft. Non-distended. No rebound. No organomegaly. Normoactive bowel sounds. MUSCULOSKELETAL Normal range of motion at all joints. No bony deformities or tenderness. No CVA tenderness. EXTREMITIES: No cyanosis. No clubbing. No edema. No calf tenderness. SKIN: Warm and dry. Normal capillary refill. No rashes. No jaundice. NEUROLOGICAL: Alert, awake, appropriate. Cranial nerves 2-12 intact. No deficits to light touch and temperature in face, upper extremities and lower extremities. No motor deficits in the in face, upper extremities and lower extremities. Normoreflexic in the upper and lower extremities. Normal speech. Toes are down- going bilaterally. Gait is normal without ataxia. PSYCHIATRIC: Cooperative. Good eye contact. Appropriate mood and affect. ED Treatment Course - LABORATORY CBC & Chemistry Diagram: 07/30/17 00:53 07/30/17 00:53 Medical Decision Making - Medical Decision Making 07/30/17 00:54 Patient is a 31-year-old female past medical history of gallstones, who presents emergency department today for worsening right upper quadrant pain, nausea and vomiting. Patient states she's been taking the medications prescribed to her from her last visit with no relief. She is currently taking Flagyl and pantoprazole. Exam with positive Webster sign. Concern for possible cholecystitis at this time. We will send for ultrasound. We'll order lab work, IV fluids, basic labs. 07/30/17 04:59 Ultrasound shows distended gallbladder with stones without secondary findings for cholecystitis. The CBD is not dilated and measures 5 mm in diameter. Rest of on ultrasound is unremarkable. Patient reports some relief of her pain however it is still present. Vomiting has stopped at this time. White blood cell count of 11.2 regardless of Flagyl treatment. Concern for possible infection of the gallbladder. Liver enzymes and bilirubin are normal at this time. Consulted with Dr. Avila for surgery. We'll admit the patient for biliary colic and surgery. *DC/Admit/Observation/Transfer Diagnosis at time of Disposition: Calculus of gallbladder without cholecystitis without obstruction, Biliary colic - Discharge Dispostion Condition at time of disposition: Stable Admit: Yes - Referrals - Patient Instructions - Post Discharge Activity
[2017-07-30] MEDS ORDERED: morphine SULFATE 4 MG/ML VIAL ONE (01:02)
[2017-07-30] MEDS ORDERED: ONDANSETRON 4 MG/2 ML VIAL ONE (01:03)
[2017-07-30 01:15] LABS: BASO % 0.7 % (0-2.0); EOS % 0.2 % (0-4.5); HEMATOCRIT 41.9 % (32.4-45.2); MCH 28.7 pg (25.7-33.7); MCHC 33.4 g/dl (32.0-36.0); MONO % 4.5 % (3.8-10.2); NEUT % 83.6 % (42.8-82.8); PLATELET COUNT 303 K/MM3 (134-434); RBC 4.88 M/mm3 (3.60-5.2); RDW 13.4 % (11.6-15.6); WHITE BLOOD COUNT 11.2 K/mm3 (4.0-10.0)
[2017-07-30 01:26] LABS: INR 1.09 (0.82-1.09); PROTHROMBIN TIME (PATIENT) 12.3 SEC (9.98-11.88)
[2017-07-30 01:37] LABS: ALBUMIN 4.6 g/dl (3.4-5.0); ALK PHOS 46 U/L (45-117); ANION GAP 12 (8-16); BILIRUBIN,TOTAL 0.3 mg/dL (0.2-1.0); BLOOD UREA NITROGEN 5 mg/dL (7-18); CHLORIDE 102 mmol/L (98-107); CO2 25 mmol/L (21-32); CREATININE 0.8 mg/dL (0.55-1.02); GLUCOSE,RANDOM 106 mg/dL (74-106); POTASSIUM 3.7 mmol/L (3.5-5.1); SGOT/AST 12 U/L (15-37); SGPT/ALT 21 U/L (12-78); SODIUM 139 mmol/L (136-145); TOT PROT 8.7 g/dl (6.4-8.2)
[2017-07-30] MEDS ORDERED: CEFAZOLIN 1 GM in DEXTROSE 5%-WATER - 50 ML IVPB ONE (03:20)
[2017-07-30 03:39] LABS: URINE APPEARANCE CLEAR; URINE BILIRUBIN NEGATIVE (<2.0 mg/dL); URINE BLOOD NEGATIVE (NEGATIVE); URINE COLOR STRAW; URINE GLUCOSE (UA) NEGATIVE (NEGATIVE); URINE KETONE 1+ (NEGATIVE); URINE LEUK ESTERASE NEGATIVE (NEGATIVE); URINE NITRITE NEGATIVE (NEGATIVE); URINE PROTEIN NEGATIVE (NEGATIVE); URINE UROBILINOGEN NEGATIVE mg/dL (0.2-1.0)
[2017-07-30 03:42] LABS: HCG,QUALITATIVE URINE NEGATIVE
[2017-07-30] MEDS ORDERED: CEFAZOLIN 1 GM/D5W 1 GM/50 ML BAG ONE (03:47)
[2017-07-30] MEDS ORDERED: SODIUM CHLORIDE 1,000 ML IV SCH (05:30)
[2017-07-30] MEDS ORDERED: morphine SULFATE 4 MG/ML VIAL IVPUSH PRN (05:50)
[2017-07-30] MEDS ORDERED: ACETAMINOPHEN 325 MG TABLET (FP) PO PRN (05:50)
[2017-07-30] MEDS ORDERED: ONDANSETRON 4 MG/2 ML VIAL IVPUSH PRN (05:50)
[2017-07-30] MEDS ORDERED: KETOROLAC TROMETHAMINE 15 MG/ML VIAL IVPUSH ONE (05:50)
--- NOTE | 2017-07-30 06:04 | HP ---
Admitting History and Physical - Admission Chief Complaint: abdomnial pain History of Present Illness: 31yo female, no significant PMH presents with RUQ abdominal pain for 2 days. She was recently discharged with same symptoms of 9/10 epigastric pain with radiation to RUQ associated with nausea and vomiting. It started at 2 pm yesterday despite taking Protonix and Reglan. In the ED she received IV hydration, antibiotics, morphine which provided complete relief of her symptoms. Abdominal ultrasound revealed cholelithiasis, she had mild leukocytosis . She is clinically improved this morning. We asked her to be admitted for surgery. History Source: Patient, Medical Record Limitations to Obtaining History: No Limitations - Past Medical History Hepatobiliary: Yes: Cholelithiasis ...LMP: 06/12/17 ENT: Yes: Allergic Rhinitis (dust/pollen) - Past Surgical History Past Surgical History: Yes: None - Smoking History Smoking history: Never smoked Have you smoked in the past 12 months: No Aproximately how many cigarettes per day: 0 - Alcohol/Substance Use Hx Alcohol Use: No History of Substance Use: reports: None - Social History ADL: Independent Home Medications - Allergies Allergies/Adverse Reactions: Allergies Allergy/AdvReac Type Severity Reaction Status Date / Time No Known Allergies Allergy Verified 07/29/17 21:52 - Home Medications Home Medications: Ambulatory Orders Metoclopramide HCl [Reglan -] 5 mg PO TIDAC #60 tablet MDD 3 07/25/17 Pantoprazole Sodium [Protonix -] 40 mg PO DAILY #30 tablet.ec MDD 1 07/25/17 metroNIDAZOLE [Flagyl -] 250 mg PO TID #60 tablet MDD 3 07/25/17 Review of Systems - Review of Systems Constitutional: denies: Chills, Fever, Unintentional Wgt. Loss Eyes: denies: Blind Spots, Recent Change in Vision HENT: denies: Difficult Swallowing, Throat Pain Neck: denies: Pain on Movement, Tenderness Cardiovascular: denies: Chest Pain, Palpitations Respiratory: denies: Cough, SOB Gastrointestinal: reports: Abdominal Pain. denies: Bloating, Constipation, Diarrhea Genitourinary: denies: Discharge, Dysuria Breasts: reports: No Symptoms Reported. denies: Pain Musculoskeletal: denies: Muscle Cramps, Muscle Weakness Integumentary: denies: Lesions, Rash Neurological: denies: Seizure, Syncope Endocrine: denies: Unexplained Weight Gain, Unexplained Weight Loss Hematology/Lymphatic: denies: Easily Bruised, Excessive Bleeding Psychiatric: denies: Anxiety, Depression Physical Examination Vital Signs: Vital Signs Temperature 98.6 F 07/29/17 21:49 Pulse Rate 77 07/29/17 21:49 Respiratory Rate 17 07/29/17 21:49 Blood Pressure 139/97 07/29/17 21:49 O2 Sat by Pulse Oximetry (%) 100 07/29/17 21:49 Vital Signs Period Temp Pulse Resp BP Sys/Mock Pulse Ox Last 24 Hr 98.1 F-98.6 F 58-77 17-18 111-139/61-97 97-100 Constitutional: Yes: Well Nourished, Calm, Mild Distress Eyes: Yes: Conjunctiva Clear, EOM Intact HENT: Yes: Atraumatic, Normocephalic Neck: Yes: Supple, Trachea Midline Cardiovascular: Yes: Regular Rate and Rhythm, S1, S2 Respiratory: Yes: Regular, CTA Bilaterally Gastrointestinal: Yes: Normal Bowel Sounds, Soft, Tenderness (RUQ, - murphys), Tenderness, Epigastrium. No: Hernia ...Rectal Exam: Yes: Deferred Renal/: No: CVA Tenderness - Left, CVA Tenderness - Right Musculoskeletal: No: Muscle Pain, Muscle Weakness Extremities: No: Cool, Cyanosis Edema: No Peripheral Pulses WNL: Yes Peripheral Pulses: Left Doralis Pedis: 2+, Right Dorsalis Pedis: 2+ Integumentary: No: Jaundice, Rash Neurological: Yes: Alert, Oriented Psychiatric: Yes: Alert, Oriented Labs: CBC,CMP WBC 11.2 K/mm3 (4.0-10.0) H D 07/30/17 00:53 RBC 4.88 M/mm3 (3.60-5.2) 07/30/17 00:53 Hgb 14.0 GM/dL (10.7-15.3) D 07/30/17 00:53 Hct 41.9 % (32.4-45.2) 07/30/17 00:53 MCV 86.0 fl (80-96) 07/30/17 00:53 MCH 28.7 pg (25.7-33.7) 07/30/17 00:53 MCHC 33.4 g/dl (32.0-36.0) 07/30/17 00:53 RDW 13.4 % (11.6-15.6) 07/30/17 00:53 Plt Count 303 K/MM3 (134-434) D 07/30/17 00:53 MPV 8.0 fl (7.5-11.1) 07/30/17 00:53 Neutrophils % 83.6 % (42.8-82.8) H D 07/30/17 00:53 Lymphocytes % 11.0 % (8-40) D 07/30/17 00:53 Monocytes % 4.5 % (3.8-10.2) 07/30/17 00:53 Eosinophils % 0.2 % (0-4.5) D 07/30/17 00:53 Basophils % 0.7 % (0-2.0) 07/30/17 00:53 Sodium 139 mmol/L (136-145) 07/30/17 00:53 Potassium 3.7 mmol/L (3.5-5.1) 07/30/17 00:53 Chloride 102 mmol/L (98-107) 07/30/17 00:53 Carbon Dioxide 25 mmol/L (21-32) 07/30/17 00:53 Anion Gap 12 (8-16) 07/30/17 00:53 BUN 5 mg/dL (7-18) L 07/30/17 00:53 Creatinine 0.8 mg/dL (0.55-1.02) 07/30/17 00:53 Creat Clearance w eGFR > 60 (>60) 07/30/17 00:53 Random Glucose 106 mg/dL (74-106) 07/30/17 00:53 Calcium 10.0 mg/dL (8.5-10.1) 07/30/17 00:53 Total Bilirubin 0.3 mg/dL (0.2-1.0) D 07/30/17 00:53 AST 12 U/L (15-37) L 07/30/17 00:53 ALT 21 U/L (12-78) 07/30/17 00:53 Alkaline Phosphatase 46 U/L (45-117) 07/30/17 00:53 Total Protein 8.7 g/dl (6.4-8.2) H 07/30/17 00:53 Albumin 4.6 g/dl (3.4-5.0) 07/30/17 00:53 Lipase 133 U/L (73-393) 07/30/17 00:53 Imaging - Results Cat Scan: Report Reviewed, Image Reviewed (Cholelithiasis with gallbladder inflamation) Problem List - Problems (1) Calculus of gallbladder without cholecystitis without obstruction Assessment/Plan: NPO and IVF hydration IV antibiotics ID consult OR on 07/31 Discussed with patient risks, benefits and alternatives of laparoscopic possible open cholecystectomy, including but not limited to bleeding, infection , injury to adjacent structures, leak or injury, intraabdominal abscess, need for further procedures, ; alternatives include antibiotics, delayed or no surgery - risks of this include failure of nonoperative therapy, perforation, sepsis, recurrence, . Patient desires to proceed with operation - will take to OR for above. Informed consent signed for same. Code(s): K80.20 - CALCULUS OF GALLBLADDER W/O CHOLECYSTITIS W/O OBSTRUCTION (2) Biliary colic Code(s): K80.50 - CALCULUS OF BILE DUCT W/O CHOLANGITIS OR CHOLECYST W/O OBST (3) Cholecystitis Code(s): K81.9 - CHOLECYSTITIS, UNSPECIFIED (4) Dehydration Code(s): E86.0 - DEHYDRATION (5) Leukocytosis Code(s): D72.829 - ELEVATED WHITE BLOOD CELL COUNT, UNSPECIFIED (6) Nausea & vomiting Code(s): R11.2 - NAUSEA WITH VOMITING, UNSPECIFIED Qualifiers: Vomiting type: bilious vomiting Qualified Code(s): R11.14 - Bilious vomiting
[2017-07-30] MEDS ORDERED: KETOROLAC TROMETHAMINE 30 MG/1 ML VIAL ONE (06:12)
[2017-07-30] MEDS ORDERED: DEXTROSE 5%-WATER - 50 ML IVPB ONE ×2 (09:39→17:31)
[2017-07-30] MEDS ORDERED: PIPERACILLIN/TAZOBACTAM 3.375 GM VIAL IVPB ONE ×2 (09:39→17:31)
[2017-07-30] MEDS: METOCLOPRAMIDE HCL INJECTION 10 MG/2 ML VIAL IVPB SCH ×2 (09:43→17:32)
[2017-07-30] MEDS: PIPERACILLIN/TAZOB 3.375 GM 3.375 GM in DEXTROSE 5%-WATER - 50 ML IVPB SCH ×2 (09:43→17:32)
[2017-07-30] MEDS: PANTOPRAZOLE SODIUM 40 MG VIAL IVPUSH SCH ×2 (09:43→21:41)
[2017-07-30] MEDS ORDERED: PANTOPRAZOLE SODIUM 40 MG in SODIUM CHLORIDE 100 ML IVPB SCH (10:00)
[2017-07-30] MEDS ORDERED: PANTOPRAZOLE 40 MG TABLET (FP) PO SCH (10:00)
--- NOTE | 2017-07-30 11:12 | CON.GI ---
Consult Consult Specialty:: GI Reason for Consultation:: abdominal pain - History of Present Illness History of Present Illness: Patient recently discharged with same symptoms of 9/10 epigastric pain with radiation to ruq associated with nausea and vomiting. It started at 2 pm yesterday despite taking Protonix and Reglan. In the ED she received IV hydration, antibiotics, morphine which provided complete relief of her symptoms. Abdominal ultrasound revealed cholelithiasis, she had mild leukocytosis. She is clinically improved this morning - Past Medical History Hepatobiliary: Yes: Cholelithiasis ...LMP: 06/12/17 ENT: Yes: Allergic Rhinitis (dust/pollen) - Past Surgical History Past Surgical History: Yes: None - Alcohol/Substance Use Hx Alcohol Use: No History of Substance Use: reports: None - Smoking History Smoking history: Never smoked Have you smoked in the past 12 months: No Aproximately how many cigarettes per day: 0 - Social History ADL: Independent Home Medications - Allergies Allergies/Adverse Reactions: Allergies Allergy/AdvReac Type Severity Reaction Status Date / Time No Known Allergies Allergy Verified 07/29/17 21:52 - Home Medications Home Medications: Ambulatory Orders Metoclopramide HCl [Reglan -] 5 mg PO TIDAC #60 tablet MDD 3 07/25/17 Pantoprazole Sodium [Protonix -] 40 mg PO DAILY #30 tablet.ec MDD 1 07/25/17 metroNIDAZOLE [Flagyl -] 250 mg PO TID #60 tablet MDD 3 07/25/17 Physical Exam-GI Vital Signs: Vital Signs Temperature 98.1 F 07/30/17 09:50 Pulse Rate 62 07/30/17 09:50 Respiratory Rate 18 07/30/17 09:50 Blood Pressure 115/64 07/30/17 09:50 O2 Sat by Pulse Oximetry (%) 97 07/30/17 06:28 Constitutional: Yes: Well Nourished Eyes: Yes: Conjunctiva Clear, Occular Prosthesis HENT: Yes: Tonsillar Exudate Cardiovascular: Yes: Regular Rate and Rhythm Respiratory: Yes: CTA Bilaterally ...Palpate: Yes: Soft. No: Firm/Rigid, Guarding, Hepatomegaly, Mass, Splenomegaly, Tenderness Labs: CBC, BMP 07/30/17 00:53 07/30/17 00:53 INR, PTT INR 1.09 (0.82-1.09) 07/30/17 00:53 Hepatic Panel Total Bilirubin 0.3 mg/dL (0.2-1.0) D 07/30/17 00:53 AST 12 U/L (15-37) L 07/30/17 00:53 ALT 21 U/L (12-78) 07/30/17 00:53 Alkaline Phosphatase 46 U/L (45-117) 07/30/17 00:53 Albumin 4.6 g/dl (3.4-5.0) 07/30/17 00:53 Ambulatory Orders Metoclopramide HCl [Reglan -] 5 mg PO TIDAC #60 tablet MDD 3 07/25/17 Pantoprazole Sodium [Protonix -] 40 mg PO DAILY #30 tablet.ec MDD 1 07/25/17 metroNIDAZOLE [Flagyl -] 250 mg PO TID #60 tablet MDD 3 07/25/17 Imaging - Results Ultrasound: Image Reviewed Problem List - Problems (1) Epigastric pain Assessment/Plan: most likely biliary colic,dyspepsia R> IV hydration, IV Reglan and Protonix may have clear liquids Code(s): R10.13 - EPIGASTRIC PAIN
--- NOTE | 2017-07-30 12:39 | PN ---
Progress Note (short form) - Note Progress Note: 31 y/o female presented with RUQ pain was found to have cholelithiasis was recently d.c on monday but presented again with similar cholic pain PE: AAOX3 s1 and s2 rrr abdomen soft non-tender lungs CTA RUQ positive cates's no edema JOSE FRANCISCO no jaundice Plan: clear liquid surgical evaluation diet as tolerate tomorrow f/u with GI recommendation Visit type - Emergency Visit Emergency Visit: No - New Patient This patient is new to me today: Yes Date on this admission: 07/30/17 - Critical Care Critical Care patient: No - Discharge Referral Referred to [facility] Med [facility] No
--- NOTE | 2017-07-30 13:33 | CON.ID ---
Consult Consult Specialty:: infectious diseases Referred by:: dr Nicole Reason for Consultation:: cholecystitis,abx mgmt - History of Present Illness Chief Complaint: ruq pain History of Present Illness: 31yo female, no significant PMH admitted with RUQ abdominal pain for 2 days. She was recently discharged with same symptoms of 9/10 epigastric pain with radiation to RUQ associated with nausea and vomiting. patient works at [employer] according to her the pain started in the afternoon and despite taking protonix did not improve. patient came to the er was worked up and u/s showed choleilithiasis surgery evaluated the patient and the plan is to take the patient to the operating room tomorrow patient currently feeling better but pain still present - History Source History Provided By: Patient Limitations to Obtaining History: No Limitations - Past Medical History Hepatobiliary: Yes: Cholelithiasis ...LMP: 06/12/17 ENT: Yes: Allergic Rhinitis (dust/pollen) - Past Surgical History Past Surgical History: Yes: None - Alcohol/Substance Use Hx Alcohol Use: No History of Substance Use: reports: None - Smoking History Smoking history: Never smoked Have you smoked in the past 12 months: No Aproximately how many cigarettes per day: 0 - Social History ADL: Independent Home Medications - Allergies Allergies/Adverse Reactions: Allergies Allergy/AdvReac Type Severity Reaction Status Date / Time No Known Allergies Allergy Verified 07/29/17 21:52 - Home Medications Home Medications: Ambulatory Orders Metoclopramide HCl [Reglan -] 5 mg PO TIDAC #60 tablet MDD 3 07/25/17 Pantoprazole Sodium [Protonix -] 40 mg PO DAILY #30 tablet.ec MDD 1 07/25/17 metroNIDAZOLE [Flagyl -] 250 mg PO TID #60 tablet MDD 3 07/25/17 Review of Systems - Review of Systems Constitutional: reports: No Symptoms Eyes: reports: No Symptoms HENT: reports: No Symptoms Neck: reports: No Symptoms Cardiovascular: reports: No Symptoms Respiratory: reports: No Symptoms Gastrointestinal: reports: Abdominal Pain Genitourinary: reports: No Symptoms Musculoskeletal: reports: No Symptoms Integumentary: reports: No Symptoms Neurological: reports: No Symptoms Endocrine: reports: No Symptoms Hematology/Lymphatic: reports: No Symptoms Psychiatric: reports: No Symptoms Physical Exam Vital Signs: Vital Signs Temperature 98.1 F 07/30/17 09:50 Pulse Rate 62 07/30/17 09:50 Respiratory Rate 18 07/30/17 09:50 Blood Pressure 115/64 07/30/17 09:50 O2 Sat by Pulse Oximetry (%) 97 07/30/17 06:28 Constitutional: Yes: Well Nourished, Calm, Mild Distress Eyes: Yes: Conjunctiva Clear HENT: Yes: Atraumatic, Normocephalic Neck: Yes: Supple, Trachea Midline Cardiovascular: Yes: Regular Rate and Rhythm Respiratory: Yes: Regular, CTA Bilaterally Gastrointestinal: Yes: Normal Bowel Sounds, Soft, Tenderness (ruq) Musculoskeletal: Yes: WNL Extremities: Yes: WNL Neurological: Yes: Alert, Oriented Psychiatric: Yes: Alert, Oriented Labs: CBC, BMP 07/30/17 00:53 07/30/17 00:53 Imaging - Results Ultrasound: Report Reviewed, Image Reviewed Assessment/Plan Problem List - Problems (1) Calculus of gallbladder without cholecystitis without obstruction Code(s): K80.20 - CALCULUS OF GALLBLADDER W/O CHOLECYSTITIS W/O OBSTRUCTION (2) Biliary colic Code(s): K80.50 - CALCULUS OF BILE DUCT W/O CHOLANGITIS OR CHOLECYST W/O OBST (3) Cholecystitis Code(s): K81.9 - CHOLECYSTITIS, UNSPECIFIED (4) Dehydration Code(s): E86.0 - DEHYDRATION (5) Leukocytosis Code(s): D72.829 - ELEVATED WHITE BLOOD CELL COUNT, UNSPECIFIED (6) Nausea & vomiting Code(s): R11.2 - NAUSEA WITH VOMITING, UNSPECIFIED Qualifiers: Vomiting type: bilious vomiting Qualified Code(s): R11.14 - Bilious vomiting patient with leukocytosis and cholelithiasis and abd pain with plan for surgery tomorrow plan will start patient on zosyn patient for or tomorrow rest continue current mgmt rest as per surgery
[2017-07-30] MEDS: D5-1/2NS+20 MEQ KCL - 20 MEQ/1,000 ML INFUS.BAG IV SCH (15:35)
[2017-07-31] MEDS ORDERED: PIPERACILLIN/TAZOBACTAM 3.375 GM VIAL IVPB ONE ×4 (00:55→17:27)
[2017-07-31] MEDS ORDERED: DEXTROSE 5%-WATER - 50 ML IVPB ONE ×2 (00:55→09:24)
[2017-07-31] MEDS: PIPERACILLIN/TAZOB 3.375 GM 3.375 GM in DEXTROSE 5%-WATER - 50 ML IVPB SCH ×3 (01:00→17:41)
[2017-07-31] MEDS: D5-1/2NS+20 MEQ KCL - 20 MEQ/1,000 ML INFUS.BAG IV SCH ×3 (01:01→22:45)
[2017-07-31] MEDS: METOCLOPRAMIDE HCL INJECTION 10 MG/2 ML VIAL IVPB SCH ×3 (02:18→19:05)
[2017-07-31 08:19] LABS: ANION GAP 5 (8-16); BLOOD UREA NITROGEN 5 mg/dL (7-18); CALCIUM 8.3 mg/dL (8.5-10.1); CHLORIDE 110 mmol/L (98-107); CO2 26 mmol/L (21-32); CREATININE 0.9 mg/dL (0.55-1.02); GLUCOSE,RANDOM 96 mg/dL (74-106); POTASSIUM 3.9 mmol/L (3.5-5.1); SGOT/AST 7 U/L (15-37); SGPT/ALT 18 U/L (12-78); SODIUM 141 mmol/L (136-145)
[2017-07-31 08:20] LABS: ALK PHOS 31 U/L (45-117); BILIRUBIN,TOTAL 0.5 mg/dL (0.2-1.0); TOT PROT 5.8 g/dl (6.4-8.2)
[2017-07-31 08:33] LABS: BASO % 0.6 % (0-2.0); EOS % 3.6 % (0-4.5); HEMATOCRIT 34.8 % (32.4-45.2); HEMOGLOBIN 11.5 GM/dL (10.7-15.3); LYMPH % 29.3 % (8-40); MCH 28.5 pg (25.7-33.7); MEAN CELL VOLUME 86.4 fl (80-96); MEAN PLT VOLUME 7.9 fl (7.5-11.1); MONO % 7.8 % (3.8-10.2); NEUT % 58.7 % (42.8-82.8); PLATELET COUNT 238 K/MM3 (134-434); RBC 4.03 M/mm3 (3.60-5.2); WHITE BLOOD COUNT 6.8 K/mm3 (4.0-10.0)
[2017-07-31] MEDS: PANTOPRAZOLE SODIUM 40 MG VIAL IVPUSH SCH ×2 (09:34→22:46)
--- NOTE | 2017-07-31 15:27 | PN ---
Progress Note, Physician History of Present Illness: stable no complaints awaiting for surgery - Current Medication List Current Medications: Active Medications Acetaminophen (Tylenol -) 650 mg PO Q4H PRN PRN Reason: PAIN LEVEL 1-5 Piperacillin Sod/Tazobactam (Sod 3.375 gm/ Dextrose) 50 mls @ 100 mls/hr IVPB Q8H-IV KEL PRN Reason: Protocol Last Admin: 07/31/17 09:34 Dose: 100 mls/hr Potassium Chloride/Dextrose/Sod Cl (D5-1/2ns+20 Meq Kcl -) 20 meq in 1,000 mls @ 125 mls/hr IV ASDIR [facility] Last Admin: 07/31/17 01:01 Dose: 125 mls/hr Metoclopramide HCl (Reglan Injection -) 10 mg IVPB Q8H-IV [facility] Last Admin: 07/31/17 09:34 Dose: 10 mg Morphine Sulfate (Morphine Sulfate) 4 mg IVPUSH Q4H PRN PRN Reason: PAIN LEVEL 6-10 Ondansetron HCl (Zofran Injection) 4 mg IVPUSH Q6H PRN PRN Reason: NAUSEA Pantoprazole Sodium (Protonix Iv) 40 mg IVPUSH BID [facility] Last Admin: 07/31/17 09:34 Dose: 40 mg - Objective Vital Signs: Vital Signs Temperature 98.1 F 07/31/17 13:19 Pulse Rate 52 L 07/31/17 13:19 Respiratory Rate 18 07/31/17 13:19 Blood Pressure 110/56 07/31/17 13:19 O2 Sat by Pulse Oximetry (%) 99 07/30/17 21:00 Constitutional: Yes: No Distress, Calm Cardiovascular: Yes: Regular Rate and Rhythm Respiratory: Yes: Regular, CTA Bilaterally Gastrointestinal: Yes: Soft, Tenderness (ruq) Musculoskeletal: Yes: WNL Extremities: Yes: WNL Neurological: Yes: Alert, Oriented Psychiatric: Yes: Alert, Oriented Labs: CBC, BMP 07/31/17 06:15 07/31/17 06:15 INR, PTT INR 1.09 (0.82-1.09) 07/30/17 00:53 Assessment/Plan Problem List - Problems (1) Calculus of gallbladder without cholecystitis without obstruction Code(s): K80.20 - CALCULUS OF GALLBLADDER W/O CHOLECYSTITIS W/O OBSTRUCTION (2) Biliary colic Code(s): K80.50 - CALCULUS OF BILE DUCT W/O CHOLANGITIS OR CHOLECYST W/O OBST (3) Cholecystitis Code(s): K81.9 - CHOLECYSTITIS, UNSPECIFIED (4) Dehydration Code(s): E86.0 - DEHYDRATION (5) Leukocytosis Code(s): D72.829 - ELEVATED WHITE BLOOD CELL COUNT, UNSPECIFIED (6) Nausea & vomiting Code(s): R11.2 - NAUSEA WITH VOMITING, UNSPECIFIED Qualifiers: Vomiting type: bilious vomiting Qualified Code(s): R11.14 - Bilious vomiting patient with leukocytosis and cholelithiasis and abd pain with plan for surgery tomorrow plan continue current abx await for surgery depending on surgical findings we will plan further abx course rest as per primary
[2017-07-31] MEDS ORDERED: BENZOIN/ALOE VERA/STORAX/TOLU 58 ML BOTTLE ONE (16:47)
[2017-07-31] MEDS ORDERED: BUPIVACAINE HCL/PF 0.5% (5MG/ML) 10 ML VIAL ONE (16:47)
--- NOTE | 2017-07-31 17:37 | PN ---
Progress Note, Physician History of Present Illness: NO FURTHER PAIN TO THE OR TODAY - Current Medication List Current Medications: Active Medications Acetaminophen (Tylenol -) 650 mg PO Q4H PRN PRN Reason: PAIN LEVEL 1-5 Piperacillin Sod/Tazobactam (Sod 3.375 gm/ Dextrose) 50 mls @ 100 mls/hr IVPB Q8H-IV KEL PRN Reason: Protocol Last Admin: 07/31/17 09:34 Dose: 100 mls/hr Potassium Chloride/Dextrose/Sod Cl (D5-1/2ns+20 Meq Kcl -) 20 meq in 1,000 mls @ 125 mls/hr IV ASDIR [facility] Last Admin: 07/31/17 01:01 Dose: 125 mls/hr Metoclopramide HCl (Reglan Injection -) 10 mg IVPB Q8H-IV KEL Last Admin: 07/31/17 09:34 Dose: 10 mg Morphine Sulfate (Morphine Sulfate) 4 mg IVPUSH Q4H PRN PRN Reason: PAIN LEVEL 6-10 Ondansetron HCl (Zofran Injection) 4 mg IVPUSH Q6H PRN PRN Reason: NAUSEA Pantoprazole Sodium (Protonix Iv) 40 mg IVPUSH BID [facility] Last Admin: 07/31/17 09:34 Dose: 40 mg - Objective Vital Signs: Vital Signs Temperature 98.3 F 07/31/17 17:36 Pulse Rate 63 07/31/17 17:36 Respiratory Rate 18 07/31/17 17:36 Blood Pressure 123/74 07/31/17 17:36 O2 Sat by Pulse Oximetry (%) 99 07/30/17 21:00 Cardiovascular: Yes: Regular Rate and Rhythm Respiratory: Yes: Regular, CTA Bilaterally Gastrointestinal: Yes: Normal Bowel Sounds, Soft. No: Tenderness Labs: CBC, BMP 07/31/17 06:15 07/31/17 06:15 INR, PTT INR 1.09 (0.82-1.09) 07/30/17 00:53 Problem List - Problems (1) Calculus of gallbladder without cholecystitis without obstruction Assessment/Plan: NPO IVF OR PER SURGERY ON IVF AND ABX Code(s): K80.20 - CALCULUS OF GALLBLADDER W/O CHOLECYSTITIS W/O OBSTRUCTION
--- NOTE | 2017-07-31 18:58 | PN ---
GI Progress Note Subjective: still with epigastriic pain, awaiting surgery - Objective Vital Signs: Vital Signs Temperature 98.3 F 07/31/17 17:36 Pulse Rate 63 07/31/17 17:36 Respiratory Rate 18 07/31/17 17:36 Blood Pressure 123/74 07/31/17 17:36 O2 Sat by Pulse Oximetry (%) 99 07/30/17 21:00 Constitutional: Well Nourished Eyes: Yes: Conjunctiva Clear HENT: Yes: Atraumatic Neck: Yes: Supple Cardiovascular: Yes: Regular Rate and Rhythm Respiratory: Yes: CTA Bilaterally ...Palpate: Yes: Soft, Tenderness. No: Firm/Rigid, Mass, Pulsatile Mass, Splenomegaly Labs: CBC, BMP 07/31/17 06:15 07/31/17 06:15 INR, PTT INR 1.09 (0.82-1.09) 07/30/17 00:53 Problem List - Problems (1) Epigastric pain Assessment/Plan: R> for lap shellie secondary to biliary colic Code(s): R10.13 - EPIGASTRIC PAIN
[2017-08-01] MEDS ORDERED: PIPERACILLIN/TAZOBACTAM 3.375 GM VIAL IVPB ONE ×3 (01:10→17:21)
[2017-08-01] MEDS ORDERED: DEXTROSE 5%-WATER - 50 ML IVPB ONE ×3 (01:11→17:22)
[2017-08-01] MEDS: PIPERACILLIN/TAZOB 3.375 GM 3.375 GM in DEXTROSE 5%-WATER - 50 ML IVPB SCH ×3 (01:12→17:24)
[2017-08-01] MEDS: METOCLOPRAMIDE HCL INJECTION 10 MG/2 ML VIAL IVPB SCH ×3 (01:48→17:23)
[2017-08-01] MEDS ORDERED: PT OWN MED DRAWER 7, Y5N ONE (09:28)
[2017-08-01] MEDS: D5-1/2NS+20 MEQ KCL - 20 MEQ/1,000 ML INFUS.BAG IV SCH ×2 (09:30→22:21)
[2017-08-01] MEDS: PANTOPRAZOLE SODIUM 40 MG VIAL IVPUSH SCH ×2 (09:31→22:15)
--- NOTE | 2017-08-01 11:27 | PN ---
Progress Note, Physician Chief Complaint: Biliary Colic History of Present Illness: NAD, in bed, awaiting - Current Medication List Current Medications: Active Medications Acetaminophen (Tylenol -) 650 mg PO Q4H PRN PRN Reason: PAIN LEVEL 1-5 Piperacillin Sod/Tazobactam (Sod 3.375 gm/ Dextrose) 50 mls @ 100 mls/hr IVPB Q8H-IV KEL PRN Reason: Protocol Last Admin: 08/01/17 09:30 Dose: 100 mls/hr Potassium Chloride/Dextrose/Sod Cl (D5-1/2ns+20 Meq Kcl -) 20 meq in 1,000 mls @ 125 mls/hr IV ASDIR [facility] Last Admin: 08/01/17 09:30 Dose: 125 mls/hr Metoclopramide HCl (Reglan Injection -) 10 mg IVPB Q8H-IV KEL Last Admin: 08/01/17 09:31 Dose: 10 mg Morphine Sulfate (Morphine Sulfate) 4 mg IVPUSH Q4H PRN PRN Reason: PAIN LEVEL 6-10 Ondansetron HCl (Zofran Injection) 4 mg IVPUSH Q6H PRN PRN Reason: NAUSEA Pantoprazole Sodium (Protonix Iv) 40 mg IVPUSH BID [facility] Last Admin: 08/01/17 09:31 Dose: 40 mg - Objective Vital Signs: Vital Signs Temperature 98.9 F 08/01/17 10:00 Pulse Rate 60 08/01/17 10:00 Respiratory Rate 18 08/01/17 10:00 Blood Pressure 102/55 08/01/17 10:00 O2 Sat by Pulse Oximetry (%) 99 08/01/17 10:00 Constitutional: Yes: Well Nourished, No Distress, Calm Cardiovascular: Yes: Regular Rate and Rhythm Respiratory: Yes: Regular Gastrointestinal: Yes: Normal Bowel Sounds, Soft Musculoskeletal: Yes: WNL Extremities: Yes: WNL Edema: No Peripheral Pulses WNL: Yes Neurological: Yes: Alert, Oriented Psychiatric: Yes: Alert, Oriented Labs: CBC, BMP 07/31/17 06:15 07/31/17 06:15 INR, PTT INR 1.09 (0.82-1.09) 07/30/17 00:53 Problem List - Problems (1) Biliary colic Assessment/Plan: -Going for surgery-lap choley today -IV abx prophylaxis Code(s): K80.50 - CALCULUS OF BILE DUCT W/O CHOLANGITIS OR CHOLECYST W/O OBST Assessment/Plan see problem list
[2017-08-01] MEDS ORDERED: MIDAZOLAM HCL 2 MG/2 ML SINGLE DOSE VIAL ONE ×2 (12:41)
[2017-08-01] MEDS ORDERED: ROCURONIUM BROMIDE 50 MG/5 ML VIAL ONE (12:41)
[2017-08-01] MEDS ORDERED: PROPOFOL 20 ML ONE ×2 (12:41→13:47)
[2017-08-01] MEDS ORDERED: LIDOCAINE HCL/PF 2% SDV 5ML VIAL ONE (12:41)
[2017-08-01] MEDS ORDERED: fentaNYL CITRATE 250 MCG/5 ML VIAL ONE (12:41)
--- NOTE | 2017-08-01 13:23 | PN ---
Progress Note, Physician History of Present Illness: stable no new issues for surgery today - Current Medication List Current Medications: Active Medications Acetaminophen (Tylenol -) 650 mg PO Q4H PRN PRN Reason: PAIN LEVEL 1-5 Piperacillin Sod/Tazobactam (Sod 3.375 gm/ Dextrose) 50 mls @ 100 mls/hr IVPB Q8H-IV KEL PRN Reason: Protocol Last Admin: 08/01/17 09:30 Dose: 100 mls/hr Potassium Chloride/Dextrose/Sod Cl (D5-1/2ns+20 Meq Kcl -) 20 meq in 1,000 mls @ 125 mls/hr IV ASDIR [facility] Last Admin: 08/01/17 09:30 Dose: 125 mls/hr Metoclopramide HCl (Reglan Injection -) 10 mg IVPB Q8H-IV KEL Last Admin: 08/01/17 09:31 Dose: 10 mg Morphine Sulfate (Morphine Sulfate) 4 mg IVPUSH Q4H PRN PRN Reason: PAIN LEVEL 6-10 Ondansetron HCl (Zofran Injection) 4 mg IVPUSH Q6H PRN PRN Reason: NAUSEA Pantoprazole Sodium (Protonix Iv) 40 mg IVPUSH BID [facility] Last Admin: 08/01/17 09:31 Dose: 40 mg - Objective Vital Signs: Vital Signs Temperature 98.9 F 08/01/17 10:00 Pulse Rate 60 08/01/17 10:00 Respiratory Rate 18 08/01/17 10:00 Blood Pressure 102/55 08/01/17 10:00 O2 Sat by Pulse Oximetry (%) 99 08/01/17 10:00 Constitutional: Yes: No Distress, Calm Cardiovascular: Yes: Regular Rate and Rhythm Respiratory: Yes: Regular, CTA Bilaterally Gastrointestinal: Yes: Soft, Tenderness Musculoskeletal: Yes: WNL Extremities: Yes: WNL Neurological: Yes: Alert, Oriented Psychiatric: Yes: Alert, Oriented Labs: CBC, BMP 07/31/17 06:15 07/31/17 06:15 INR, PTT INR 1.09 (0.82-1.09) 07/30/17 00:53 Assessment/Plan Problem List - Problems (1) Calculus of gallbladder without cholecystitis without obstruction Code(s): K80.20 - CALCULUS OF GALLBLADDER W/O CHOLECYSTITIS W/O OBSTRUCTION (2) Biliary colic Code(s): K80.50 - CALCULUS OF BILE DUCT W/O CHOLANGITIS OR CHOLECYST W/O OBST (3) Cholecystitis Code(s): K81.9 - CHOLECYSTITIS, UNSPECIFIED (4) Dehydration Code(s): E86.0 - DEHYDRATION (5) Leukocytosis Code(s): D72.829 - ELEVATED WHITE BLOOD CELL COUNT, UNSPECIFIED (6) Nausea & vomiting Code(s): R11.2 - NAUSEA WITH VOMITING, UNSPECIFIED Qualifiers: Vomiting type: bilious vomiting Qualified Code(s): R11.14 - Bilious vomiting plan continue current abx for surgery today once surgery findings are noted then will adjust abx if needed
[2017-08-01] MEDS ORDERED: BUPIVACAINE HCL/PF 0.5% (5MG/ML) 10 ML VIAL ONE (13:31)
[2017-08-01] MEDS ORDERED: BUPIVACAINE HCL/PF (5 MG/ML) 30 ML VIAL IJ ONE ×2 (13:34→14:00)
[2017-08-01] MEDS ORDERED: NEOSTIGMINE METHYLSULFATE 0.5 MG/ML - 10 ML MDV ONE (13:53)
[2017-08-01] MEDS ORDERED: GLYCOPYRROLATE 0.2 MG/1 ML VIAL ONE (14:00)
[2017-08-01] MEDS ORDERED: ONDANSETRON 4 MG/2 ML VIAL ONE (14:00)
[2017-08-01] MEDS ORDERED: BENZOIN/ALOE VERA/STORAX/TOLU 58 ML BOTTLE ONE (14:03)
[2017-08-01] MEDS ORDERED: ONDANSETRON 4 MG/2 ML VIAL IVPUSH PRN ×2 (14:24→19:34)
[2017-08-01] MEDS ORDERED: LACTATED RINGERS SOLUTION 1,000 ML IV SCH (14:30)
[2017-08-01] MEDS ORDERED: morphine SULFATE 4 MG/ML VIAL IVPUSH PRN (14:54)
--- NOTE | 2017-08-01 15:26 | OP ---
Operative Note - Note: Operative Date: 08/01/17 Pre-Operative Diagnosis: acute cholecystitis Operation: laparoscopic cholecystectomy Findings: pus filled gall bladder, long inflamed and edamtous gallbladder, critical view identified. Post-Operative Diagnosis: Other (supperative cholecystitis) Surgeon: Corey Varma Adjunct Faculty Mathematics Department: [facility] Anesthesiologist/TALENT RECRUITER: Stoney Torres Anesthesia: General, Local (marcaine 0.5%) Estimated Blood Loss (mls): 15 Fluid Volume Replaced (mls): 1,000 Operative Report Dictated: Yes
[2017-08-02] MEDS: morphine SULFATE 4 MG/ML VIAL IVPUSH PRN ×3 (00:18→21:58)
[2017-08-02] MEDS ORDERED: morphine SULFATE 4 MG/ML VIAL IVPUSH PRN (00:24)
[2017-08-02] MEDS: SIMETHICONE 80 MG TAB.CHEW (FP) PO PRN ×4 (00:42→22:08)
[2017-08-02] MEDS ORDERED: DEXTROSE 5%-WATER - 50 ML IVPB ONE ×3 (00:46→17:17)
[2017-08-02] MEDS ORDERED: PIPERACILLIN/TAZOBACTAM 3.375 GM VIAL IVPB ONE ×3 (00:46→17:17)
[2017-08-02] MEDS: PIPERACILLIN/TAZOB 3.375 GM 3.375 GM in DEXTROSE 5%-WATER - 50 ML IVPB SCH ×3 (01:11→17:18)
[2017-08-02] MEDS: METOCLOPRAMIDE HCL INJECTION 10 MG/2 ML VIAL IVPB SCH ×3 (01:11→17:19)
[2017-08-02] MEDS: D5-1/2NS+20 MEQ KCL - 20 MEQ/1,000 ML INFUS.BAG IV SCH (03:20)
[2017-08-02 07:56] LABS: BASO % 0.3 % (0-2.0); EOS % 1.2 % (0-4.5); HEMATOCRIT 35.7 % (32.4-45.2); LYMPH % 15.1 % (8-40); MCH 28.9 pg (25.7-33.7); MCHC 33.6 g/dl (32.0-36.0); MEAN CELL VOLUME 85.9 fl (80-96); MEAN PLT VOLUME 7.8 fl (7.5-11.1); MONO % 9.1 % (3.8-10.2); NEUT % 74.3 % (42.8-82.8); PLATELET COUNT 250 K/MM3 (134-434); RBC 4.16 M/mm3 (3.60-5.2); RDW 12.9 % (11.6-15.6); WHITE BLOOD COUNT 9.8 K/mm3 (4.0-10.0)
[2017-08-02 08:30] LABS: ALBUMIN 3.4 g/dl (3.4-5.0); ANION GAP 7 (8-16); BLOOD UREA NITROGEN 4 mg/dL (7-18); CALCIUM 8.5 mg/dL (8.5-10.1); CHLORIDE 108 mmol/L (98-107); CO2 25 mmol/L (21-32); GLUCOSE,RANDOM 108 mg/dL (74-106); SODIUM 140 mmol/L (136-145)
[2017-08-02 08:34] LABS: ALK PHOS 33 U/L (45-117); BILIRUBIN,TOTAL 0.3 mg/dL (0.2-1.0); CREATININE 0.8 mg/dL (0.55-1.02); SGOT/AST 25 U/L (15-37); SGPT/ALT 35 U/L (12-78); TOT PROT 6.4 g/dl (6.4-8.2)
[2017-08-02] MEDS: PANTOPRAZOLE SODIUM 40 MG VIAL IVPUSH SCH ×2 (09:55→21:57)
--- NOTE | 2017-08-02 10:33 | PN ---
Progress Note, Physician Chief Complaint: Biliary Colic History of Present Illness: NAD, in bed tolerating PO intake - Current Medication List Current Medications: Active Medications Acetaminophen (Tylenol -) 650 mg PO Q4H PRN PRN Reason: PAIN LEVEL 1-5 Potassium Chloride/Dextrose/Sod Cl (D5-1/2ns+20 Meq Kcl -) 20 meq in 1,000 mls @ 125 mls/hr IV ASDIR KEL Last Admin: 08/02/17 03:20 Dose: 125 mls/hr Piperacillin Sod/Tazobactam (Sod 3.375 gm/ Dextrose) 50 mls @ 100 mls/hr IVPB Q8H-IV KEL PRN Reason: Protocol Last Admin: 08/02/17 09:54 Dose: 100 mls/hr Metoclopramide HCl (Reglan Injection -) 10 mg IVPB Q8H-IV KEL Last Admin: 08/02/17 09:54 Dose: 10 mg Morphine Sulfate (Morphine Sulfate) 4 mg IVPUSH Q4H PRN PRN Reason: PAIN LEVEL 6-10 Last Admin: 08/02/17 09:53 Dose: 4 mg Morphine Sulfate (Morphine Sulfate) 2 mg IVPUSH Q4H PRN PRN Reason: PAIN LEVEL 1-5 Morphine Sulfate (Morphine Sulfate) 4 mg IVPUSH Q4H PRN PRN Reason: PAIN LEVEL 6-10 Pantoprazole Sodium (Protonix Iv) 40 mg IVPUSH BID KEL Last Admin: 08/02/17 09:55 Dose: 40 mg Simethicone (Mylicon -) 80 mg PO Q4H PRN PRN Reason: GAS Last Admin: 08/02/17 06:36 Dose: 80 mg - Objective Vital Signs: Vital Signs Temperature 98.7 F 08/02/17 06:00 Pulse Rate 72 08/02/17 06:00 Respiratory Rate 18 08/02/17 06:00 Blood Pressure 119/60 08/02/17 06:00 O2 Sat by Pulse Oximetry (%) 100 08/01/17 21:00 Constitutional: Yes: Well Nourished, No Distress, Calm Cardiovascular: Yes: Regular Rate and Rhythm Respiratory: Yes: Regular Gastrointestinal: Yes: Normal Bowel Sounds, Soft, Tenderness (incisional) Musculoskeletal: Yes: WNL Extremities: Yes: WNL Edema: No Peripheral Pulses WNL: Yes Wound/Incision: Yes: Dressing Dry and Intact Neurological: Yes: Alert, Oriented Psychiatric: Yes: Alert, Oriented Labs: CBC, BMP 08/02/17 06:00 08/02/17 06:00 INR, PTT INR 1.09 (0.82-1.09) 07/30/17 00:53 Problem List - Problems (1) Calculus of gallbladder without cholecystitis without obstruction Assessment/Plan: Pre-Operative Diagnosis: acute cholecystitis Operation: laparoscopic cholecystectomy Findings: pus filled gall bladder, long inflamed and edamtous gallbladder, critical view identified. Post-Operative Diagnosis: Other (supperative cholecystitis) Physical therapy Code(s): K80.20 - CALCULUS OF GALLBLADDER W/O CHOLECYSTITIS W/O OBSTRUCTION (2) Cholecystitis Assessment/Plan: -ID consult appreciated -IV abx Code(s): K81.9 - CHOLECYSTITIS, UNSPECIFIED Assessment/Plan see problem list
--- NOTE | 2017-08-02 10:49 | PN ---
Progress Note, Physician Chief Complaint: abdominal pain History of Present Illness: 31yo female, no significant PMH presents with RUQ abdominal pain for 2 days. She was recently discharged with same symptoms of 9/10 epigastric pain with radiation to RUQ associated with nausea and vomiting. she has been stable and improving post operatively. - Current Medication List Current Medications: Active Medications Acetaminophen (Tylenol -) 650 mg PO Q4H PRN PRN Reason: PAIN LEVEL 1-5 Potassium Chloride/Dextrose/Sod Cl (D5-1/2ns+20 Meq Kcl -) 20 meq in 1,000 mls @ 125 mls/hr IV ASDIR [facility] Last Admin: 08/02/17 03:20 Dose: 125 mls/hr Piperacillin Sod/Tazobactam (Sod 3.375 gm/ Dextrose) 50 mls @ 100 mls/hr IVPB Q8H-IV KEL PRN Reason: Protocol Last Admin: 08/02/17 09:54 Dose: 100 mls/hr Metoclopramide HCl (Reglan Injection -) 10 mg IVPB Q8H-IV KEL Last Admin: 08/02/17 09:54 Dose: 10 mg Morphine Sulfate (Morphine Sulfate) 4 mg IVPUSH Q4H PRN PRN Reason: PAIN LEVEL 6-10 Last Admin: 08/02/17 09:53 Dose: 4 mg Morphine Sulfate (Morphine Sulfate) 2 mg IVPUSH Q4H PRN PRN Reason: PAIN LEVEL 1-5 Morphine Sulfate (Morphine Sulfate) 4 mg IVPUSH Q4H PRN PRN Reason: PAIN LEVEL 6-10 Pantoprazole Sodium (Protonix Iv) 40 mg IVPUSH BID [facility] Last Admin: 08/02/17 09:55 Dose: 40 mg Simethicone (Mylicon -) 80 mg PO Q4H PRN PRN Reason: GAS Last Admin: 08/02/17 06:36 Dose: 80 mg - Objective Vital Signs: Vital Signs Temperature 98.7 F 08/02/17 06:00 Pulse Rate 72 08/02/17 06:00 Respiratory Rate 18 08/02/17 06:00 Blood Pressure 119/60 08/02/17 06:00 O2 Sat by Pulse Oximetry (%) 100 08/01/17 21:00 Constitutional: Yes: Well Nourished, No Distress, Calm Eyes: Yes: Conjunctiva Clear, EOM Intact HENT: Yes: Atraumatic, Normocephalic Neck: Yes: Supple, Trachea Midline Cardiovascular: Yes: Regular Rate and Rhythm, S1, S2. No: Murmur Respiratory: Yes: Regular, CTA Bilaterally Gastrointestinal: Yes: Normal Bowel Sounds, Soft, Tenderness (incisonal). No: Ascites, Distention ...Rectal Exam: Yes: Deferred Genitourinary: No: CVA Tenderness - Left, CVA Tenderness - Right Musculoskeletal: No: Muscle Pain, Muscle Weakness Extremities: No: Cool, Cyanosis Edema: No Peripheral Pulses WNL: Yes Integumentary: No: Jaundice, Rash Wound/Incision: Yes: Clean/Dry, Well Approximated, Dressing Dry and Intact ( minimal staining) Neurological: Yes: Alert, Oriented Psychiatric: Yes: Alert, Oriented Labs: CBC, BMP 08/02/17 06:00 08/02/17 06:00 INR, PTT INR 1.09 (0.82-1.09) 07/30/17 00:53 Problem List - Problems (1) Calculus of gallbladder without cholecystitis without obstruction Assessment/Plan: 31 yo female with acute supperative cholecystitis POD#1 s/p laparoscopic cholecystectomy diet as tolerated OOB to chair continue IV antibiotics and trend labs discharge plan for 2-3 days Code(s): K80.20 - CALCULUS OF GALLBLADDER W/O CHOLECYSTITIS W/O OBSTRUCTION (2) Biliary colic Code(s): K80.50 - CALCULUS OF BILE DUCT W/O CHOLANGITIS OR CHOLECYST W/O OBST (3) Cholecystitis Code(s): K81.9 - CHOLECYSTITIS, UNSPECIFIED (4) Dehydration Code(s): E86.0 - DEHYDRATION (5) Leukocytosis Code(s): D72.829 - ELEVATED WHITE BLOOD CELL COUNT, UNSPECIFIED (6) Nausea & vomiting Code(s): R11.2 - NAUSEA WITH VOMITING, UNSPECIFIED Qualifiers: Vomiting type: bilious vomiting Qualified Code(s): R11.14 - Bilious vomiting
[2017-08-02] MEDS ORDERED: metroNIDAZOLE 0.75% VAGINAL GEL 70 GM TUBE VG ONE (12:15)
--- NOTE | 2017-08-02 13:40 | PN ---
Progress Note, Physician History of Present Illness: patient stable tolerating po operative finding noted pus with some spillage - Current Medication List Current Medications: Active Medications Acetaminophen (Tylenol -) 650 mg PO Q4H PRN PRN Reason: PAIN LEVEL 1-5 Piperacillin Sod/Tazobactam (Sod 3.375 gm/ Dextrose) 50 mls @ 100 mls/hr IVPB Q8H-IV KEL PRN Reason: Protocol Last Admin: 08/02/17 09:54 Dose: 100 mls/hr Metoclopramide HCl (Reglan Injection -) 10 mg IVPB Q8H-IV KEL Last Admin: 08/02/17 09:54 Dose: 10 mg Morphine Sulfate (Morphine Sulfate) 4 mg IVPUSH Q4H PRN PRN Reason: PAIN LEVEL 6-10 Last Admin: 08/02/17 09:53 Dose: 4 mg Morphine Sulfate (Morphine Sulfate) 2 mg IVPUSH Q4H PRN PRN Reason: PAIN LEVEL 1-5 Morphine Sulfate (Morphine Sulfate) 4 mg IVPUSH Q4H PRN PRN Reason: PAIN LEVEL 6-10 Pantoprazole Sodium (Protonix Iv) 40 mg IVPUSH BID KEL Last Admin: 08/02/17 09:55 Dose: 40 mg Simethicone (Mylicon -) 80 mg PO Q4H PRN PRN Reason: GAS Last Admin: 08/02/17 06:36 Dose: 80 mg - Objective Vital Signs: Vital Signs Temperature 98.9 F 08/02/17 10:00 Pulse Rate 89 08/02/17 10:00 Respiratory Rate 18 08/02/17 10:00 Blood Pressure 129/62 08/02/17 10:00 O2 Sat by Pulse Oximetry (%) 100 08/02/17 10:00 Constitutional: Yes: No Distress, Calm Cardiovascular: Yes: Regular Rate and Rhythm Respiratory: Yes: Regular, CTA Bilaterally Gastrointestinal: Yes: Normal Bowel Sounds, Soft Musculoskeletal: Yes: WNL Extremities: Yes: WNL Neurological: Yes: Alert, Oriented Psychiatric: Yes: Alert, Oriented Labs: CBC, BMP 08/02/17 06:00 08/02/17 06:00 INR, PTT INR 1.09 (0.82-1.09) 07/30/17 00:53 Assessment/Plan Problem List - Problems (1) Calculus of gallbladder without cholecystitis without obstruction Code(s): K80.20 - CALCULUS OF GALLBLADDER W/O CHOLECYSTITIS W/O OBSTRUCTION (2) Biliary colic Code(s): K80.50 - CALCULUS OF BILE DUCT W/O CHOLANGITIS OR CHOLECYST W/O OBST (3) Cholecystitis Code(s): K81.9 - CHOLECYSTITIS, UNSPECIFIED (4) Dehydration Code(s): E86.0 - DEHYDRATION (5) Leukocytosis Code(s): D72.829 - ELEVATED WHITE BLOOD CELL COUNT, UNSPECIFIED (6) Nausea & vomiting Code(s): R11.2 - NAUSEA WITH VOMITING, UNSPECIFIED Qualifiers: Vomiting type: bilious vomiting Qualified Code(s): R11.14 - Bilious vomiting plan continue current abx will give abx today if patient stable will switch to oral tomorrow patient had pus in the gall bladder with some spillage
[2017-08-02] MEDS ORDERED: metroNIDAZOLE 0.75% VAGINAL GEL 70 GM TUBE VG SCH (14:45)
[2017-08-03] MEDS ORDERED: DEXTROSE 5%-WATER - 50 ML IVPB ONE ×3 (01:10→17:11)
[2017-08-03] MEDS ORDERED: PIPERACILLIN/TAZOBACTAM 3.375 GM VIAL IVPB ONE ×3 (01:10→17:11)
[2017-08-03] MEDS: PIPERACILLIN/TAZOB 3.375 GM 3.375 GM in DEXTROSE 5%-WATER - 50 ML IVPB SCH ×3 (01:22→17:12)
[2017-08-03] MEDS: METOCLOPRAMIDE HCL INJECTION 10 MG/2 ML VIAL IVPB SCH ×2 (01:22→10:24)
[2017-08-03] MEDS: SIMETHICONE 80 MG TAB.CHEW (FP) PO PRN ×2 (06:43→23:59)
[2017-08-03] MEDS: ACETAMINOPHEN 325 MG TABLET (FP) PO PRN ×3 (09:49→23:56)
[2017-08-03] MEDS: PANTOPRAZOLE SODIUM 40 MG VIAL IVPUSH SCH (09:49)
--- NOTE | 2017-08-03 09:58 | PN ---
Progress Note, Physician Chief Complaint: abdominal pain History of Present Illness: 31yo female, no significant PMH presents with RUQ abdominal pain for 2 days. She was recently discharged with same symptoms of 9/10 epigastric pain with radiation to RUQ associated with nausea and vomiting. she has been stable and improving post operatively. - Current Medication List Current Medications: Active Medications Acetaminophen (Tylenol -) 650 mg PO Q4H PRN PRN Reason: PAIN LEVEL 1-5 Piperacillin Sod/Tazobactam (Sod 3.375 gm/ Dextrose) 50 mls @ 100 mls/hr IVPB Q8H-IV KEL PRN Reason: Protocol Last Admin: 08/03/17 01:22 Dose: 100 mls/hr Metoclopramide HCl (Reglan Injection -) 10 mg IVPB Q8H-IV KEL Last Admin: 08/03/17 01:22 Dose: 10 mg Metronidazole (Metrogel 0.75% Vaginal Gel -) 1 applic VG HS [facility] Stop: 08/07/17 22:01 Morphine Sulfate (Morphine Sulfate) 4 mg IVPUSH Q4H PRN PRN Reason: PAIN LEVEL 6-10 Last Admin: 08/02/17 09:53 Dose: 4 mg Morphine Sulfate (Morphine Sulfate) 2 mg IVPUSH Q4H PRN PRN Reason: PAIN LEVEL 1-5 Last Admin: 08/02/17 21:58 Dose: 2 mg Morphine Sulfate (Morphine Sulfate) 4 mg IVPUSH Q4H PRN PRN Reason: PAIN LEVEL 6-10 Pantoprazole Sodium (Protonix Iv) 40 mg IVPUSH BID KEL Last Admin: 08/02/17 21:57 Dose: 40 mg Simethicone (Mylicon -) 80 mg PO Q4H PRN PRN Reason: GAS Last Admin: 08/03/17 06:43 Dose: 80 mg - Objective Vital Signs: Vital Signs Temperature 98.6 F 08/03/17 06:00 Pulse Rate 71 08/03/17 06:00 Respiratory Rate 20 08/03/17 06:00 Blood Pressure 129/70 08/03/17 06:00 O2 Sat by Pulse Oximetry (%) 100 08/02/17 21:00 Constitutional: Yes: No Distress, Calm Eyes: Yes: Conjunctiva Clear, EOM Intact HENT: Yes: Atraumatic, Normocephalic Neck: Yes: Supple, Trachea Midline Cardiovascular: Yes: Regular Rate and Rhythm, S1, S2 Respiratory: Yes: Regular, CTA Bilaterally Gastrointestinal: Yes: Normal Bowel Sounds, Soft. No: Tenderness Genitourinary: No: CVA Tenderness - Left, CVA Tenderness - Right Extremities: No: Cool, Cyanosis Integumentary: No: Jaundice, Rash Wound/Incision: Yes: Clean/Dry, Well Approximated, Steri Strips Neurological: Yes: Alert, Oriented Psychiatric: Yes: Alert, Oriented Labs: CBC, BMP 08/02/17 06:00 08/02/17 06:00 INR, PTT INR 1.09 (0.82-1.09) 07/30/17 00:53 Problem List - Problems (1) Calculus of gallbladder without cholecystitis without obstruction Assessment/Plan: 31 yo female with acute supperative cholecystitis POD#2 s/p laparoscopic cholecystectomy diet as tolerated OOB to chair continue IV antibiotics and trend labs discharge plan for 2-3 days Code(s): K80.20 - CALCULUS OF GALLBLADDER W/O CHOLECYSTITIS W/O OBSTRUCTION (2) Biliary colic Code(s): K80.50 - CALCULUS OF BILE DUCT W/O CHOLANGITIS OR CHOLECYST W/O OBST (3) Cholecystitis Code(s): K81.9 - CHOLECYSTITIS, UNSPECIFIED (4) Dehydration Code(s): E86.0 - DEHYDRATION (5) Leukocytosis Code(s): D72.829 - ELEVATED WHITE BLOOD CELL COUNT, UNSPECIFIED (6) Nausea & vomiting Code(s): R11.2 - NAUSEA WITH VOMITING, UNSPECIFIED Qualifiers: Vomiting type: bilious vomiting Qualified Code(s): R11.14 - Bilious vomiting
[2017-08-03] MEDS ORDERED: ONDANSETRON 4 MG TABLET PO PRN (10:27)
--- NOTE | 2017-08-03 11:01 | PN ---
Progress Note, Physician Chief Complaint: Biliary Colic History of Present Illness: NAD, in bed S/P choley tolerating PO intake IV abx due to pus filled gall bladder during surgery self ambulating - Current Medication List Current Medications: Active Medications Acetaminophen (Tylenol -) 650 mg PO Q4H PRN PRN Reason: PAIN LEVEL 1-5 Last Admin: 08/03/17 09:49 Dose: 650 mg Piperacillin Sod/Tazobactam (Sod 3.375 gm/ Dextrose) 50 mls @ 100 mls/hr IVPB Q8H-IV KEL PRN Reason: Protocol Last Admin: 08/03/17 09:49 Dose: 100 mls/hr Metronidazole (Metrogel 0.75% Vaginal Gel -) 1 applic VG HS KEL Stop: 08/07/17 22:01 Morphine Sulfate (Morphine Sulfate) 4 mg IVPUSH Q4H PRN PRN Reason: PAIN LEVEL 6-10 Last Admin: 08/02/17 09:53 Dose: 4 mg Morphine Sulfate (Morphine Sulfate) 2 mg IVPUSH Q4H PRN PRN Reason: PAIN LEVEL 1-5 Last Admin: 08/02/17 21:58 Dose: 2 mg Morphine Sulfate (Morphine Sulfate) 4 mg IVPUSH Q4H PRN PRN Reason: PAIN LEVEL 6-10 Ondansetron HCl (Zofran -) 4 mg PO Q8H PRN PRN Reason: NAUSEA AND/OR VOMITING Simethicone (Mylicon -) 80 mg PO Q4H PRN PRN Reason: GAS Last Admin: 08/03/17 06:43 Dose: 80 mg - Objective Vital Signs: Vital Signs Temperature 98.6 F 08/03/17 10:00 Pulse Rate 68 08/03/17 10:00 Respiratory Rate 20 08/03/17 10:00 Blood Pressure 123/78 08/03/17 10:00 O2 Sat by Pulse Oximetry (%) 100 08/03/17 09:00 Constitutional: Yes: Well Nourished, No Distress, Calm Cardiovascular: Yes: Regular Rate and Rhythm Respiratory: Yes: Regular Gastrointestinal: Yes: Normal Bowel Sounds, Tenderness (incisional) Musculoskeletal: Yes: WNL Extremities: Yes: WNL Edema: No Peripheral Pulses WNL: Yes Wound/Incision: Yes: Clean/Dry Neurological: Yes: Alert, Oriented Psychiatric: Yes: Alert, Oriented Labs: CBC, BMP 08/02/17 06:00 08/02/17 06:00 INR, PTT INR 1.09 (0.82-1.09) 07/30/17 00:53 Problem List - Problems (1) Calculus of gallbladder without cholecystitis without obstruction Assessment/Plan: Pre-Operative Diagnosis: acute cholecystitis Operation: laparoscopic cholecystectomy Findings: pus filled gall bladder, long inflamed and edamtous gallbladder, critical view identified. Post-Operative Diagnosis: Other (supperative cholecystitis) Physical therapy Code(s): K80.20 - CALCULUS OF GALLBLADDER W/O CHOLECYSTITIS W/O OBSTRUCTION (2) Cholecystitis Assessment/Plan: -ID consult appreciated -IV abx- change to PO Code(s): K81.9 - CHOLECYSTITIS, UNSPECIFIED Assessment/Plan see problem list
--- NOTE | 2017-08-03 13:41 | PN ---
Progress Note, Physician History of Present Illness: patient starting to feels better still with some ad discomfort - Current Medication List Current Medications: Active Medications Acetaminophen (Tylenol -) 650 mg PO Q4H PRN PRN Reason: PAIN LEVEL 1-5 Last Admin: 08/03/17 09:49 Dose: 650 mg Piperacillin Sod/Tazobactam (Sod 3.375 gm/ Dextrose) 50 mls @ 100 mls/hr IVPB Q8H-IV KEL PRN Reason: Protocol Last Admin: 08/03/17 09:49 Dose: 100 mls/hr Metronidazole (Metrogel 0.75% Vaginal Gel -) 1 applic VG HS KEL Stop: 08/07/17 22:01 Morphine Sulfate (Morphine Sulfate) 4 mg IVPUSH Q4H PRN PRN Reason: PAIN LEVEL 6-10 Last Admin: 08/02/17 09:53 Dose: 4 mg Morphine Sulfate (Morphine Sulfate) 2 mg IVPUSH Q4H PRN PRN Reason: PAIN LEVEL 1-5 Last Admin: 08/02/17 21:58 Dose: 2 mg Morphine Sulfate (Morphine Sulfate) 4 mg IVPUSH Q4H PRN PRN Reason: PAIN LEVEL 6-10 Ondansetron HCl (Zofran -) 4 mg PO Q8H PRN PRN Reason: NAUSEA AND/OR VOMITING Simethicone (Mylicon -) 80 mg PO Q4H PRN PRN Reason: GAS Last Admin: 08/03/17 06:43 Dose: 80 mg - Objective Vital Signs: Vital Signs Temperature 98.2 F 08/03/17 13:28 Pulse Rate 72 08/03/17 13:28 Respiratory Rate 20 08/03/17 13:28 Blood Pressure 118/68 08/03/17 13:28 O2 Sat by Pulse Oximetry (%) 100 08/03/17 09:00 Constitutional: Yes: Calm, Mild Distress Cardiovascular: Yes: Regular Rate and Rhythm Respiratory: Yes: Regular, CTA Bilaterally Gastrointestinal: Yes: Normal Bowel Sounds, Soft Musculoskeletal: Yes: WNL Extremities: Yes: WNL Wound/Incision: Yes: Clean/Dry Neurological: Yes: Alert, Oriented Psychiatric: Yes: Alert, Oriented Labs: CBC, BMP 08/02/17 06:00 08/02/17 06:00 INR, PTT INR 1.09 (0.82-1.09) 07/30/17 00:53 Assessment/Plan Problem List - Problems (1) Calculus of gallbladder without cholecystitis without obstruction Code(s): K80.20 - CALCULUS OF GALLBLADDER W/O CHOLECYSTITIS W/O OBSTRUCTION (2) Biliary colic Code(s): K80.50 - CALCULUS OF BILE DUCT W/O CHOLANGITIS OR CHOLECYST W/O OBST (3) Cholecystitis Code(s): K81.9 - CHOLECYSTITIS, UNSPECIFIED (4) Dehydration Code(s): E86.0 - DEHYDRATION (5) Leukocytosis Code(s): D72.829 - ELEVATED WHITE BLOOD CELL COUNT, UNSPECIFIED (6) Nausea & vomiting Code(s): R11.2 - NAUSEA WITH VOMITING, UNSPECIFIED Qualifiers: Vomiting type: bilious vomiting Qualified Code(s): R11.14 - Bilious vomiting plan still not 100 percent in view of having pus spill in the abd dre continue iv abx for another 24 hours might switch to oral tomorrow
[2017-08-03] MEDS ORDERED: metroNIDAZOLE 0.75% VAGINAL GEL 70 GM TUBE VG SCH (22:00)
[2017-08-04] MEDS ORDERED: PIPERACILLIN/TAZOBACTAM 3.375 GM VIAL IVPB ONE ×2 (02:01→09:34)
[2017-08-04] MEDS ORDERED: DEXTROSE 5%-WATER - 50 ML IVPB ONE ×2 (02:02→09:34)
[2017-08-04] MEDS: PIPERACILLIN/TAZOB 3.375 GM 3.375 GM in DEXTROSE 5%-WATER - 50 ML IVPB SCH ×2 (02:56→09:37)
[2017-08-04] MEDS: morphine SULFATE 4 MG/ML VIAL IVPUSH PRN (02:56)
[2017-08-04 05:33] VITALS: BP 108/59; PULSE 69; TEMP 99
[2017-08-04] MEDS ORDERED: PT OWN MED DRAWER 7, Y5N ONE (06:50)
--- NOTE | 2017-08-04 09:35 | PATH ---
Surgical Pathology Report Patient Name: TRACI HURLEY Med. Rec. #: [id number] /Age/Gender: 1985 (Age: 31) / F Account: [id number] Location: [facility] MED/SURG Taken: 08/01/2017 Received: 08/02/2017 Reported: 08/04/2017 Physicians: Corey Varma M.D. Specimen(s) Received GALLBLADDER Clinical History Calculus of gallbladder Final Diagnosis GALLBLADDER, CHOLECYSTECTOMY: CHRONIC CHOLECYSTITIS AND CHOLELITHIASIS. BENIGN PERICYSTIC LYMPH NODE PRESENT. Electronically Signed Bartolo Gann M.D. Gross Description Received in formalin, labeled "gallbladder," is a 10.4 x 2.3 x 1.9 cm. gallbladder with a 0.2 cm. in length portion of cystic duct attached. The outer surface is pink and georges and varies from smooth to shaggy. The lumen contains inspissated hurley material, along with multiple lobulated yellow calculi each which is between less than 0.1 cm greatest dimension up to 1.2 cm in greatest dimension. A possible pericystic lymph node is present. The mucosa is brown and georges, and varies from velvety to flattened. The wall of the gallbladder measures 0.2 cm. in thickness. 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 [facility]/08/02/2017 [facility]/08/02/2017
--- NOTE | 2017-08-04 09:36 | DS ---
Physical Examination Vital Signs: Vital Signs Temperature 99 F 08/04/17 05:32 Pulse Rate 69 08/04/17 05:32 Respiratory Rate 18 08/04/17 05:32 Blood Pressure 108/59 08/04/17 05:32 O2 Sat by Pulse Oximetry (%) 95 08/03/17 21:00 Vital Signs Period Temp Pulse Resp BP Sys/Mock Pulse Ox Last 24 Hr 97.9 F-99 F 62-72 18-20 108-130/59-78 95 Findings/Remarks: Stable and afebrile Constitutional: Yes: No Distress, Calm Eyes: Yes: Conjunctiva Clear, EOM Intact HENT: Yes: Atraumatic, Normocephalic Neck: Yes: Supple, Trachea Midline Cardiovascular: Yes: Regular Rate and Rhythm, S1, S2. No: Murmur Respiratory: Yes: Regular, CTA Bilaterally Gastrointestinal: Yes: Normal Bowel Sounds, Soft. No: Tenderness Renal/: No: CVA Tenderness - Left, CVA Tenderness - Right Musculoskeletal: No: Muscle Pain, Muscle Weakness Extremities: No: Calf Tenderness, Cool, Cyanosis Wound/Incision: Yes: Clean/Dry, Well Approximated, Steri Strips, Open to air Neurological: Yes: Alert, Oriented Psychiatric: Yes: Alert, Oriented Labs: CBC, BMP 08/02/17 06:00 08/02/17 06:00 Discharge Summary Reason For Visit: CALCULUS OF GALLBLADDER WITHOUT CHOLECYS Current Active Problems Biliary colic (Acute) Calculus of gallbladder without cholecystitis without obstruction (Acute) Procedures: Principal: Laparoscopic Cholecystectomy Other Procedures: IV antibioticc, IVF resuscitiation and antipyretic therapy Hospital Course: Admitted with acute cholecystitis, taken for uneventful laproscopic cholecystectomy. found to have suppartive cholecystitis with minimal contamination. Kept for IV antibiotics. Imporved and planned for discharge on an oral antibiotic regimen. Followup in 2 week. Condition: Improved - Instructions Diet, Activity, Other Instructions: Postoperative instructions: You had a laparoscopic cholecystectomy on DATE by Dr. Corey Varma of [facility]. Activity: Resume your usual activities gradually, but no heavy exertion or lifting more than 10-15 pounds for 1 month. Remove dressings 48 hours after surgery; sticky tapes underneath will fall off by themselves. You may shower daily starting then, just pat the incision areas dry. Eat lightly at first, but advance to your usual diet as tolerated. Pain: For pain, you may use and alternate Tylenol (acetaminophen) and/or ibuprofen every 6 hours each as needed; this means that you can take one OR the other at 3-hour intervals. If you are prescribed a Tylenol/narcotic combination for severe pain, use it instead of plain Tylenol as needed and switch back when your pain starts decreasing. Do not take more than 4000mg of acetaminophen in a day. Take medications as prescribed or indicated on the labeling. Follow-up: Call Dr. Varma' office at [phone] to make your postop appointment (Monday ~2 weeks after surgery). Clinic is held in the Diagnostic [facility] on the first floor of [facility]. Call the office if you have: * increasing pain not responsive to pain medication * fever of 101F or higher * vomiting * unusual or increasing bleeding or drainage from wounds * increasing redness or swelling at wound sites * inability to urinate Also, see your primary medical doctor within 1-2 weeks. Referrals: Bouchra Galvan MD [Primary Care Provider] - Disposition: HOME - Home Medications Comprehensive Discharge Medication List: Ambulatory Orders Metoclopramide HCl [Reglan -] 5 mg PO TIDAC #60 tablet MDD 3 07/25/17 Pantoprazole Sodium [Protonix -] 40 mg PO DAILY #30 tablet.ec MDD 1 07/25/17 metroNIDAZOLE [Flagyl -] 250 mg PO TID #60 tablet MDD 3 07/25/17 Ibuprofen 600 mg PO Q6H PRN 10 Days #40 tablet 08/04/17
--- NOTE | 2017-08-04 10:58 | PN ---
Progress Note, Physician Chief Complaint: Biliary Colic History of Present Illness: NAD, in bed S/P choley tolerating PO intake change to po abx self ambulating - Current Medication List Current Medications: Active Medications Acetaminophen (Tylenol -) 650 mg PO Q4H PRN PRN Reason: PAIN LEVEL 1-5 Last Admin: 08/03/17 23:56 Dose: 650 mg Piperacillin Sod/Tazobactam (Sod 3.375 gm/ Dextrose) 50 mls @ 100 mls/hr IVPB Q8H-IV KEL PRN Reason: Protocol Last Admin: 08/04/17 09:37 Dose: 100 mls/hr Metronidazole (Metrogel 0.75% Vaginal Gel -) 1 applic VG HS KEL Stop: 08/07/17 22:01 Last Admin: 08/03/17 23:04 Dose: 1 appful Morphine Sulfate (Morphine Sulfate) 4 mg IVPUSH Q4H PRN PRN Reason: PAIN LEVEL 6-10 Last Admin: 08/02/17 09:53 Dose: 4 mg Morphine Sulfate (Morphine Sulfate) 2 mg IVPUSH Q4H PRN PRN Reason: PAIN LEVEL 1-5 Last Admin: 08/04/17 02:56 Dose: 2 mg Morphine Sulfate (Morphine Sulfate) 4 mg IVPUSH Q4H PRN PRN Reason: PAIN LEVEL 6-10 Ondansetron HCl (Zofran -) 4 mg PO Q8H PRN PRN Reason: NAUSEA AND/OR VOMITING Simethicone (Mylicon -) 80 mg PO Q4H PRN PRN Reason: GAS Last Admin: 08/03/17 23:59 Dose: 80 mg - Objective Vital Signs: Vital Signs Temperature 99 F 08/04/17 05:32 Pulse Rate 69 08/04/17 05:32 Respiratory Rate 18 08/04/17 05:32 Blood Pressure 108/59 08/04/17 05:32 O2 Sat by Pulse Oximetry (%) 95 08/03/17 21:00 Constitutional: Yes: Well Nourished, No Distress, Calm Cardiovascular: Yes: Regular Rate and Rhythm Respiratory: Yes: Regular Gastrointestinal: Yes: Normal Bowel Sounds, Soft Musculoskeletal: Yes: WNL Extremities: Yes: WNL Edema: No Peripheral Pulses WNL: Yes Neurological: Yes: Alert, Oriented Psychiatric: Yes: Alert, Oriented Labs: CBC, BMP 08/02/17 06:00 08/02/17 06:00 INR, PTT INR 1.09 (0.82-1.09) 07/30/17 00:53 Problem List - Problems (1) Calculus of gallbladder without cholecystitis without obstruction Assessment/Plan: Pre-Operative Diagnosis: acute cholecystitis Operation: laparoscopic cholecystectomy Findings: pus filled gall bladder, long inflamed and edamtous gallbladder, critical view identified. Post-Operative Diagnosis: Other (supperative cholecystitis) Physical therapy Code(s): K80.20 - CALCULUS OF GALLBLADDER W/O CHOLECYSTITIS W/O OBSTRUCTION (2) Cholecystitis Assessment/Plan: -ID consult appreciated -IV abx- change to PO Code(s): K81.9 - CHOLECYSTITIS, UNSPECIFIED Assessment/Plan see problem list
== END 2017-08-04 11:55 | disposition home or self-care (01) | DRG 419 ==
LOC: JER 21:39 → JERBED 07-30 04:37 → J7W 07-30 08:55
PROC: 0FT44ZZ Resection of Gallbladder, Percutaneous Endoscopic Approach (ICD-10-PCS; principal; 2017-08-01 14:45)
DX: K80.00 Calculus of gallbladder with acute cholecystitis without obstruction (principal); E86.0 Dehydration
CPT/HCPCS: 36415; 76705-TC; 80053; 81003; 83690; 84703; 85025; 85610; 85730; 86850; 86900; 86901; 87086; 94760; 99284-25; J7030